=== PATIENT | male | born 1975 | race Caucasian/White ===

== ENCOUNTER 2016-09-24 21:56 | Emergency (ER) | payer SELFPAY ==
[~2016-09-24] VITALS: Ht 195.6 cm; Wt 110.0 kg
[2016-09-24 21:59] VITALS: BP 114/83
[2016-09-26] MEDS ORDERED: RIVA20TA PO (14:57)
[2016-09-26] MEDS ORDERED: OMEP20TA62 PO (14:57)
[2016-09-26] MEDS ORDERED: SERT50TA PO (14:57)
[2016-09-26] MEDS ORDERED: DIVA-68 PO ×2 (14:57)
[2016-09-26] MEDS ORDERED: DOCU-30 PO (14:57)
[2016-09-26] MEDS ORDERED: IBUP-1222 PO (14:57)
[2016-09-26] MEDS ORDERED: ZOLP-413 PO (14:57)
[2016-09-26] MEDS ORDERED: DIVA250T6 PO (14:57)
[2016-09-26] MEDS ORDERED: IPRA3AMP INH (14:57)
[2016-09-26] MEDS ORDERED: FURO20TA3 PO (14:57)
[2016-09-26] MEDS ORDERED: HYDR-3240 PO (14:57)
[2016-09-26] MEDS ORDERED: BACL20TA PO (14:57)
== END 2016-09-25 00:37 | disposition home or self-care (01) ==
LOC: ED 23:59 → MERGE 23:59 → ED 09-25 00:37
DX: Z00.01 Encounter for general adult medical examination with abnormal findings (principal); S06.9X0A Unspecified intracranial injury without loss of consciousness, initial encounter; X58.XXXA Exposure to other specified factors, initial encounter; Y93.89 Activity, other specified; Y92.89 Other specified places as the place of occurrence of the external cause; Y99.8 Other external cause status
CPT/HCPCS: 51702

== ENCOUNTER 2016-09-26 13:05 | Inpatient (IN) | payer MEDICAID, OTHER ==
[~2016-09-26] VITALS: Ht 195.6 cm; Wt 118.7 kg
[2016-09-26] MEDS ORDERED: MORPHINE SULFATE 4 MG/ML, 1ML IVPush PRN (13:30)
[2016-09-26] MEDS ORDERED: SODIUM CHLORIDE FLUSH 10ML SYR IVF ONE (13:30)
[2016-09-26] MEDS ORDERED: MORPHINE SULFATE 4 MG/ML, 1ML ONE (13:52)
[2016-09-26 13:54] LABS: HEMATOCRIT 48.6 % (39.2-51.8); HEMOGLOBIN 15.9 g/dL (13.7-18.0); WHITE BLOOD COUNT 10.7 x10^3/uL (3.4-10)
[2016-09-26 14:07] LABS: BLOOD UREA NITROGEN 11 mg/dL (7-18)
[2016-09-26] MEDS ORDERED: PLEASE ENTER ALLERGIES MC SCH ×2 (14:30)
[2016-09-26] MEDS ORDERED: OMEP20TA62 PO (14:57)
[2016-09-26] MEDS ORDERED: SERT50TA PO (14:57)
[2016-09-26] MEDS ORDERED: HYDR-3240 PO (14:57)
[2016-09-26] MEDS ORDERED: FURO20TA3 PO (14:57)
[2016-09-26] MEDS ORDERED: DIVA250T6 PO (14:57)
[2016-09-26] MEDS ORDERED: RIVA20TA PO (14:57)
[2016-09-26] MEDS ORDERED: BACL20TA PO (14:57)
[2016-09-26] MEDS ORDERED: DOCU-131 PO (14:57)
[2016-09-26] MEDS ORDERED: DIVA-68 PO ×2 (14:57)
[2016-09-26] MEDS ORDERED: IBUP-1222 PO (14:57)
[2016-09-26] MEDS ORDERED: ZOLP-413 PO (14:57)
[2016-09-26] MEDS ORDERED: IPRA3AMP INH (14:57)
[2016-09-26] MEDS ORDERED: CEFTRIAXONE PMX 1GM/50ML 50 ML IV ONE (17:00)
[2016-09-26] MEDS ORDERED: CEFTRIAXONE PMX 1GM/50ML 50 ML ONE (17:01)
[2016-09-26 17:52] VITALS: BP 113/75
[2016-09-26] MEDS ORDERED: ENOXAPARIN 40 MG/0.4 ML SQ SCH (18:30)
[2016-09-26] MEDS ORDERED: ACETAMINOPHEN 325 MG TABLET PO PRN (18:30)
[2016-09-26] MEDS ORDERED: ENALAPRILAT 1.25 MG/ML, 2ML IVPush PRN (18:30)
[2016-09-26] MEDS ORDERED: ONDANSETRON ODT 4 MG PO PRN (18:30)
[2016-09-26] MEDS ORDERED: IBUPROFEN 600 MG TABLET PO PRN (19:00)
[2016-09-26 19:11] VITALS: BP 108/74
[2016-09-26] MEDS: DIVALPROEX 500 MG TABLET.DR PO SCH (20:41)
[2016-09-26] MEDS: ZOLPIDEM 5MG TABLET PO SCH (20:41)
[2016-09-26] MEDS: BACLOFEN 10 MG TABLET PO SCH (20:41)
[2016-09-26] MEDS ORDERED: ALBUTEROL/IPRATROPIUM 2.5MG/0.5MG, 3 ML NPPB PRN (21:30)
[2016-09-26] MEDS: ALBUTEROL/IPRATROPIUM 2.5MG/0.5MG, 3 ML NEB SCH (21:34)
[2016-09-27 01:07] VITALS: BP 107/69
[2016-09-27] MEDS: CEFTRIAXONE PMX 2GM/50ML 50 ML IV SCH ×2 (04:19→16:38)
[2016-09-27] MEDS: ALBUTEROL/IPRATROPIUM 2.5MG/0.5MG, 3 ML NPPB SCH ×3 (06:48→15:00)
[2016-09-27] MEDS: ALBUTEROL/IPRATROPIUM 2.5MG/0.5MG, 3 ML NEB SCH ×3 (06:48→16:00)
[2016-09-27 08:00] VITALS: BP 107/73
[2016-09-27] MEDS: DOCUSATE 100 MG CAPSULE PO SCH (08:22)
[2016-09-27] MEDS: BACLOFEN 10 MG TABLET PO SCH ×3 (08:22→19:49)
[2016-09-27] MEDS: DIVALPROEX 500 MG TABLET.DR PO SCH ×2 (08:22→19:49)
[2016-09-27] MEDS: SERTRALINE 50MG TABLET PO SCH (08:22)
[2016-09-27] MEDS: RIVAROXABAN 20 MG TABLET PO SCH (08:22)
[2016-09-27] MEDS: FUROSEMIDE 20 MG TABLET PO SCH (08:22)
[2016-09-27] MEDS: OMEPRAZOLE 20 MG CAPSULE.DR PO SCH (08:22)
[2016-09-27] MEDS: DIVALPROEX 250 MG TABLET.DR PO SCH (12:10)
[2016-09-27 14:00] VITALS: BP 151/83
[2016-09-27 19:46] VITALS: BP 117/70
[2016-09-27] MEDS: ZOLPIDEM 5MG TABLET PO SCH (19:49)
[2016-09-28 01:09] VITALS: BP 109/71
[2016-09-28] MEDS: CEFTRIAXONE PMX 2GM/50ML 50 ML IV SCH ×2 (04:10→18:00)
[2016-09-28] MEDS: ALBUTEROL/IPRATROPIUM 2.5MG/0.5MG, 3 ML NPPB SCH ×2 (08:38→11:00)
[2016-09-28] MEDS: DOCUSATE 100 MG CAPSULE PO SCH (09:00)
[2016-09-28 10:21] VITALS: BP 138/81
[2016-09-28] MEDS: DIVALPROEX 500 MG TABLET.DR PO SCH ×2 (10:25→20:11)
[2016-09-28] MEDS: BACLOFEN 10 MG TABLET PO SCH ×3 (10:25→20:11)
[2016-09-28] MEDS: FUROSEMIDE 20 MG TABLET PO SCH (10:25)
[2016-09-28] MEDS: OMEPRAZOLE 20 MG CAPSULE.DR PO SCH (10:25)
[2016-09-28] MEDS: RIVAROXABAN 20 MG TABLET PO SCH (10:26)
[2016-09-28] MEDS: SERTRALINE 50MG TABLET PO SCH (10:26)
[2016-09-28] MEDS: DIVALPROEX 250 MG TABLET.DR PO SCH (14:24)
[2016-09-28 14:47] VITALS: BP 99/61
[2016-09-28] MEDS ORDERED: ALBUTEROL/IPRATROPIUM 2.5MG/0.5MG, 3 ML NPPB PRN (16:30)
[2016-09-28 19:16] VITALS: BP 104/58
[2016-09-28] MEDS: ZOLPIDEM 5MG TABLET PO SCH (20:11)
[2016-09-28] MEDS: HYDROcodone/APAP 5/325 TABLET PO PRN (23:07)
[2016-09-29 01:23] VITALS: BP 108/72
[2016-09-29] MEDS: CEFTRIAXONE PMX 2GM/50ML 50 ML IV SCH (05:08)
[2016-09-29 08:11] VITALS: BP 106/69
[2016-09-29] MEDS: DOCUSATE 100 MG CAPSULE PO SCH (09:00)
[2016-09-29] MEDS: OMEPRAZOLE 20 MG CAPSULE.DR PO SCH (09:45)
[2016-09-29] MEDS: RIVAROXABAN 20 MG TABLET PO SCH (09:45)
[2016-09-29] MEDS: FUROSEMIDE 20 MG TABLET PO SCH (09:45)
[2016-09-29] MEDS: BACLOFEN 10 MG TABLET PO SCH ×3 (09:46→21:42)
[2016-09-29] MEDS: DIVALPROEX 500 MG TABLET.DR PO SCH ×2 (09:46→21:42)
[2016-09-29] MEDS: SERTRALINE 50MG TABLET PO SCH (09:47)
[2016-09-29] MEDS: DIVALPROEX 250 MG TABLET.DR PO SCH (12:38)
[2016-09-29 14:48] VITALS: BP 139/73
[2016-09-29 19:09] VITALS: BP 119/77
[2016-09-29] MEDS: HYDROcodone/APAP 5/325 TABLET PO PRN (21:42)
[2016-09-29] MEDS: ZOLPIDEM 5MG TABLET PO SCH (21:42)
[2016-09-29] MEDS: NICOTINE 21 MG/24 HR PATCH.TD24 TD SCH (21:43)
[2016-09-30 00:41] VITALS: BP 110/66
[2016-09-30] MEDS: HYDROcodone/APAP 5/325 TABLET PO PRN (05:14)
[2016-09-30] MEDS: RIVAROXABAN 20 MG TABLET PO SCH (08:24)
[2016-09-30] MEDS: OMEPRAZOLE 20 MG CAPSULE.DR PO SCH (08:24)
[2016-09-30] MEDS: SERTRALINE 50MG TABLET PO SCH (08:24)
[2016-09-30] MEDS: FUROSEMIDE 20 MG TABLET PO SCH ×3 (08:25→08:28)
[2016-09-30] MEDS: BACLOFEN 10 MG TABLET PO SCH ×3 (08:25→21:26)
[2016-09-30] MEDS: DIVALPROEX 500 MG TABLET.DR PO SCH ×2 (08:25→21:26)
[2016-09-30] MEDS: DOCUSATE 100 MG CAPSULE PO SCH (08:25)
[2016-09-30 08:39] VITALS: BP 132/83
[2016-09-30] MEDS ORDERED: ALBUTEROL/IPRATROPIUM 2.5MG/0.5MG, 3 ML NPPB PRN (09:00)
[2016-09-30] MEDS ORDERED: NICOTINE 21 MG/24 HR PATCH.TD24 TD SCH (09:00)
[2016-09-30] MEDS: DIVALPROEX 250 MG TABLET.DR PO SCH (13:52)
[2016-09-30 16:02] VITALS: BP 116/81
[2016-09-30 18:48] VITALS: BP 120/77
[2016-09-30] MEDS: NICOTINE 21 MG/24 HR PATCH.TD24 TD SCH (21:26)
[2016-09-30] MEDS: ZOLPIDEM 5MG TABLET PO SCH (21:26)
[2016-10-01 01:00] VITALS: BP 112/66
[2016-10-01] MEDS: HYDROcodone/APAP 5/325 TABLET PO PRN (04:00)
[2016-10-01 05:45] LABS: HEMATOCRIT 43.2 % (39.2-51.8); HEMOGLOBIN 14.4 g/dL (13.7-18.0); WHITE BLOOD COUNT 6.9 x10^3/uL (3.4-10)
[2016-10-01 05:45] LABS: BLOOD UREA NITROGEN 11 mg/dL (7-18)
[2016-10-01 07:08] VITALS: BP 96/58
[2016-10-01] MEDS: DIVALPROEX 500 MG TABLET.DR PO SCH ×2 (08:47→20:34)
[2016-10-01] MEDS: SERTRALINE 50MG TABLET PO SCH (08:48)
[2016-10-01] MEDS: FUROSEMIDE 20 MG TABLET PO SCH (08:48)
[2016-10-01] MEDS: OMEPRAZOLE 20 MG CAPSULE.DR PO SCH (08:48)
[2016-10-01] MEDS: DOCUSATE 100 MG CAPSULE PO SCH (08:48)
[2016-10-01] MEDS: BACLOFEN 10 MG TABLET PO SCH ×3 (08:48→20:33)
[2016-10-01] MEDS: RIVAROXABAN 20 MG TABLET PO SCH (08:48)
[2016-10-01] MEDS: DIVALPROEX 250 MG TABLET.DR PO SCH (12:03)
[2016-10-01 13:01] VITALS: BP 118/81
[2016-10-01 18:49] VITALS: BP 123/84
[2016-10-01] MEDS: ZOLPIDEM 5MG TABLET PO SCH (20:33)
[2016-10-01] MEDS: NICOTINE 21 MG/24 HR PATCH.TD24 TD SCH (20:33)
[2016-10-02 00:14] VITALS: BP 106/73
[2016-10-02 08:10] VITALS: BP 90/55
[2016-10-02] MEDS: DOCUSATE 100 MG CAPSULE PO SCH (08:33)
[2016-10-02] MEDS: OMEPRAZOLE 20 MG CAPSULE.DR PO SCH (08:33)
[2016-10-02] MEDS: RIVAROXABAN 20 MG TABLET PO SCH (08:33)
[2016-10-02] MEDS: BACLOFEN 10 MG TABLET PO SCH ×3 (08:33→19:35)
[2016-10-02] MEDS: SERTRALINE 50MG TABLET PO SCH (08:33)
[2016-10-02] MEDS: FUROSEMIDE 20 MG TABLET PO SCH (08:33)
[2016-10-02] MEDS: DIVALPROEX 500 MG TABLET.DR PO SCH ×2 (08:33→19:35)
[2016-10-02] MEDS: DIVALPROEX 250 MG TABLET.DR PO SCH (12:00)
[2016-10-02 14:00] VITALS: BP 122/89
[2016-10-02 19:18] VITALS: BP 108/74
[2016-10-02] MEDS: ZOLPIDEM 5MG TABLET PO SCH (19:35)
[2016-10-02] MEDS: NICOTINE 21 MG/24 HR PATCH.TD24 TD SCH (19:35)
[2016-10-02] MEDS ORDERED: ONDANSETRON ODT 4 MG PO PRN (20:00)
[2016-10-02] MEDS ORDERED: ACETAMINOPHEN 325 MG TABLET PO PRN (20:00)
[2016-10-02] MEDS ORDERED: IBUPROFEN 600 MG TABLET PO PRN (20:00)
[2016-10-03 02:10] VITALS: BP 124/68
[2016-10-03 07:57] VITALS: BP 104/69
[2016-10-03] MEDS: FUROSEMIDE 20 MG TABLET PO SCH (09:00)
[2016-10-03] MEDS: DOCUSATE 100 MG CAPSULE PO SCH (09:16)
[2016-10-03] MEDS: SERTRALINE 50MG TABLET PO SCH (09:17)
[2016-10-03] MEDS: BACLOFEN 10 MG TABLET PO SCH ×3 (09:17→19:21)
[2016-10-03] MEDS: OMEPRAZOLE 20 MG CAPSULE.DR PO SCH (09:17)
[2016-10-03] MEDS: DIVALPROEX 500 MG TABLET.DR PO SCH ×2 (09:17→19:21)
[2016-10-03] MEDS: RIVAROXABAN 20 MG TABLET PO SCH (09:17)
[2016-10-03 12:15] VITALS: BP 103/60
[2016-10-03] MEDS: DIVALPROEX 250 MG TABLET.DR PO SCH (13:16)
[2016-10-03 19:17] VITALS: BP 109/71
[2016-10-03] MEDS: ZOLPIDEM 5MG TABLET PO SCH (19:21)
[2016-10-03] MEDS: NICOTINE 21 MG/24 HR PATCH.TD24 TD SCH (19:21)
[2016-10-04 02:15] VITALS: BP 112/76
[2016-10-04 07:27] VITALS: BP 110/78
[2016-10-04] MEDS: DOCUSATE 100 MG CAPSULE PO SCH (09:00)
[2016-10-04] MEDS: OMEPRAZOLE 20 MG CAPSULE.DR PO SCH (09:52)
[2016-10-04] MEDS: RIVAROXABAN 20 MG TABLET PO SCH (09:52)
[2016-10-04] MEDS: SERTRALINE 50MG TABLET PO SCH (09:52)
[2016-10-04] MEDS: FUROSEMIDE 20 MG TABLET PO SCH (09:52)
[2016-10-04] MEDS: BACLOFEN 10 MG TABLET PO SCH ×3 (09:52→20:58)
[2016-10-04] MEDS: DIVALPROEX 500 MG TABLET.DR PO SCH ×2 (09:52→20:58)
[2016-10-04] MEDS: DIVALPROEX 250 MG TABLET.DR PO SCH (12:56)
[2016-10-04 13:59] VITALS: BP 113/73
[2016-10-04 19:57] VITALS: BP 129/86
[2016-10-04] MEDS: ZOLPIDEM 5MG TABLET PO SCH (20:58)
[2016-10-04] MEDS: NICOTINE 21 MG/24 HR PATCH.TD24 TD SCH (20:59)
[2016-10-04] MEDS: HYDROcodone/APAP 5/325 TABLET PO PRN (21:01)
[2016-10-05 07:35] VITALS: BP 90/61
[2016-10-05] MEDS: DOCUSATE 100 MG CAPSULE PO SCH (09:00)
[2016-10-05] MEDS: FUROSEMIDE 20 MG TABLET PO SCH (09:00)
[2016-10-05] MEDS: DIVALPROEX 500 MG TABLET.DR PO SCH ×2 (10:31→21:28)
[2016-10-05] MEDS: OMEPRAZOLE 20 MG CAPSULE.DR PO SCH (10:32)
[2016-10-05] MEDS: SERTRALINE 50MG TABLET PO SCH (10:32)
[2016-10-05] MEDS: BACLOFEN 10 MG TABLET PO SCH ×3 (10:32→21:28)
[2016-10-05] MEDS: RIVAROXABAN 20 MG TABLET PO SCH (10:32)
[2016-10-05] MEDS: DIVALPROEX 250 MG TABLET.DR PO SCH (14:21)
[2016-10-05 14:34] VITALS: BP 97/65
[2016-10-05 19:32] VITALS: BP 100/66
[2016-10-05] MEDS: ZOLPIDEM 5MG TABLET PO SCH (21:28)
[2016-10-05] MEDS: NICOTINE 21 MG/24 HR PATCH.TD24 TD SCH (21:28)
[2016-10-06 00:46] VITALS: BP 114/68
[2016-10-06 07:46] VITALS: BP 103/65
[2016-10-06] MEDS: DIVALPROEX 500 MG TABLET.DR PO SCH ×2 (08:43→20:10)
[2016-10-06] MEDS: FUROSEMIDE 20 MG TABLET PO SCH (08:43)
[2016-10-06] MEDS: OMEPRAZOLE 20 MG CAPSULE.DR PO SCH (08:43)
[2016-10-06] MEDS: RIVAROXABAN 20 MG TABLET PO SCH (08:43)
[2016-10-06] MEDS: BACLOFEN 10 MG TABLET PO SCH ×3 (08:43→20:10)
[2016-10-06] MEDS: SERTRALINE 50MG TABLET PO SCH (08:44)
[2016-10-06] MEDS: DOCUSATE 100 MG CAPSULE PO SCH (08:45)
[2016-10-06] MEDS: DIVALPROEX 250 MG TABLET.DR PO SCH (11:53)
[2016-10-06 12:36] VITALS: BP 101/61
[2016-10-06 19:02] VITALS: BP 113/71
[2016-10-06] MEDS: ZOLPIDEM 5MG TABLET PO SCH (20:10)
[2016-10-06] MEDS: NICOTINE 21 MG/24 HR PATCH.TD24 TD SCH (20:11)
[2016-10-07 02:21] VITALS: BP 107/69
[2016-10-07 05:46] LABS: HEMATOCRIT 46.9 % (39.2-51.8); HEMOGLOBIN 15.4 g/dL (13.7-18.0); WHITE BLOOD COUNT 9.5 x10^3/uL (3.4-10)
[2016-10-07 05:53] LABS: BLOOD UREA NITROGEN 11 mg/dL (7-18)
[2016-10-07 07:15] VITALS: BP 109/74
[2016-10-07] MEDS: OMEPRAZOLE 20 MG CAPSULE.DR PO SCH (07:54)
[2016-10-07] MEDS: RIVAROXABAN 20 MG TABLET PO SCH (07:54)
[2016-10-07] MEDS: DOCUSATE 100 MG CAPSULE PO SCH (07:54)
[2016-10-07] MEDS: BACLOFEN 10 MG TABLET PO SCH ×3 (07:54→20:23)
[2016-10-07] MEDS: SERTRALINE 50MG TABLET PO SCH (07:54)
[2016-10-07] MEDS: DIVALPROEX 500 MG TABLET.DR PO SCH ×2 (07:54→20:24)
[2016-10-07] MEDS: FUROSEMIDE 20 MG TABLET PO SCH (07:54)
[2016-10-07] MEDS: DIVALPROEX 250 MG TABLET.DR PO SCH (11:57)
[2016-10-07 15:12] VITALS: BP 101/58
[2016-10-07 19:14] VITALS: BP 102/69
[2016-10-07] MEDS: ZOLPIDEM 5MG TABLET PO SCH (20:24)
[2016-10-07] MEDS: NICOTINE 21 MG/24 HR PATCH.TD24 TD SCH (21:26)
[2016-10-08 01:12] VITALS: BP 103/63
[2016-10-08 07:36] VITALS: BP 98/73
[2016-10-08] MEDS: DIVALPROEX 500 MG TABLET.DR PO SCH ×2 (07:50→20:26)
[2016-10-08] MEDS: DOCUSATE 100 MG CAPSULE PO SCH (07:50)
[2016-10-08] MEDS: OMEPRAZOLE 20 MG CAPSULE.DR PO SCH (07:51)
[2016-10-08] MEDS: SERTRALINE 50MG TABLET PO SCH (07:51)
[2016-10-08] MEDS: BACLOFEN 10 MG TABLET PO SCH ×3 (07:51→20:26)
[2016-10-08] MEDS: RIVAROXABAN 20 MG TABLET PO SCH (07:51)
[2016-10-08] MEDS: FUROSEMIDE 20 MG TABLET PO SCH (07:51)
[2016-10-08] MEDS: DIVALPROEX 250 MG TABLET.DR PO SCH (11:15)
[2016-10-08 12:07] VITALS: BP 115/75
[2016-10-08] MEDS: HYDROcodone/APAP 5/325 TABLET PO PRN (15:40)
[2016-10-08 19:05] VITALS: BP 109/69
[2016-10-08] MEDS: NICOTINE 21 MG/24 HR PATCH.TD24 TD SCH (20:26)
[2016-10-08] MEDS: ZOLPIDEM 5MG TABLET PO SCH (20:26)
[2016-10-09 00:18] VITALS: BP 96/68
[2016-10-09 07:26] VITALS: BP 93/56
[2016-10-09] MEDS: BACLOFEN 10 MG TABLET PO SCH ×3 (08:41→21:04)
[2016-10-09] MEDS: RIVAROXABAN 20 MG TABLET PO SCH (08:41)
[2016-10-09] MEDS: FUROSEMIDE 20 MG TABLET PO SCH (08:41)
[2016-10-09] MEDS: OMEPRAZOLE 20 MG CAPSULE.DR PO SCH (08:41)
[2016-10-09] MEDS: DIVALPROEX 500 MG TABLET.DR PO SCH ×2 (08:41→21:04)
[2016-10-09] MEDS: SERTRALINE 50MG TABLET PO SCH (08:41)
[2016-10-09] MEDS: DOCUSATE 100 MG CAPSULE PO SCH (08:41)
[2016-10-09] MEDS: DIVALPROEX 250 MG TABLET.DR PO SCH (13:07)
[2016-10-09 14:36] VITALS: BP 92/62
[2016-10-09 19:52] VITALS: BP 99/62
[2016-10-09] MEDS: ZOLPIDEM 5MG TABLET PO SCH (21:03)
[2016-10-09] MEDS: NICOTINE 21 MG/24 HR PATCH.TD24 TD SCH (21:05)
[2016-10-10 01:03] VITALS: BP 100/70
[2016-10-10 06:54] VITALS: BP 110/75
[2016-10-10] MEDS ORDERED: NITROGLYCERIN SINGLE TAB 0.4 MG SL ONE (08:00)
[2016-10-10] MEDS ORDERED: ASPIRIN 325 MG TABLET EC ONE (08:00)
[2016-10-10] MEDS: DOCUSATE 100 MG CAPSULE PO SCH (10:10)
[2016-10-10] MEDS: BACLOFEN 10 MG TABLET PO SCH ×3 (10:11→19:54)
[2016-10-10] MEDS: FUROSEMIDE 20 MG TABLET PO SCH (10:11)
[2016-10-10] MEDS: OMEPRAZOLE 20 MG CAPSULE.DR PO SCH (10:11)
[2016-10-10] MEDS: DIVALPROEX 500 MG TABLET.DR PO SCH ×2 (10:11→19:54)
[2016-10-10] MEDS: SERTRALINE 50MG TABLET PO SCH (10:11)
[2016-10-10] MEDS: RIVAROXABAN 20 MG TABLET PO SCH (10:11)
[2016-10-10] MEDS: HYDROcodone/APAP 5/325 TABLET PO PRN (10:28)
[2016-10-10] MEDS: DIVALPROEX 250 MG TABLET.DR PO SCH (12:08)
[2016-10-10 13:31] VITALS: BP 108/69
[2016-10-10 18:50] VITALS: BP 115/78
[2016-10-10] MEDS: ZOLPIDEM 5MG TABLET PO SCH (19:54)
[2016-10-10] MEDS: NICOTINE 21 MG/24 HR PATCH.TD24 TD SCH (19:54)
[2016-10-10] MEDS: NITROGLYCERIN 0.4 MG BOTTLE (25 TABS) SL PRN ×3 (22:23→22:34)
[2016-10-10] MEDS ORDERED: ASPIRIN 325 MG TABLET PO ONE (22:30)
[2016-10-10 22:44] LABS: IS PT STATUS REG ER OR PRE ER? NO
[2016-10-10] MEDS ORDERED: MORPHINE SULFATE 4 MG/ML, 1ML IVPush ONE (23:00)
[2016-10-11 00:32] VITALS: BP 102/62
[2016-10-11 07:12] VITALS: BP 111/74
[2016-10-11] MEDS: DOCUSATE 100 MG CAPSULE PO SCH (09:00)
[2016-10-11] MEDS: SERTRALINE 50MG TABLET PO SCH (10:01)
[2016-10-11] MEDS: RIVAROXABAN 20 MG TABLET PO SCH (10:02)
[2016-10-11] MEDS: FUROSEMIDE 20 MG TABLET PO SCH (10:02)
[2016-10-11] MEDS: DIVALPROEX 500 MG TABLET.DR PO SCH ×2 (10:02→19:39)
[2016-10-11] MEDS: OMEPRAZOLE 20 MG CAPSULE.DR PO SCH (10:02)
[2016-10-11] MEDS: BACLOFEN 10 MG TABLET PO SCH ×3 (10:02→19:39)
[2016-10-11] MEDS: DIVALPROEX 250 MG TABLET.DR PO SCH (12:13)
[2016-10-11 13:53] VITALS: BP 119/73
[2016-10-11] MEDS: ZOLPIDEM 5MG TABLET PO SCH (19:39)
[2016-10-11] MEDS: NICOTINE 21 MG/24 HR PATCH.TD24 TD SCH (19:39)
[2016-10-11 19:44] VITALS: BP 105/71
[2016-10-11 23:48] LABS: IS PT STATUS REG ER OR PRE ER? NO
[2016-10-12 01:17] VITALS: BP 104/57
[2016-10-12 08:00] VITALS: BP 98/68
[2016-10-12] MEDS ORDERED: BISACODYL 10 MG SUPP PR PRN (09:30)
[2016-10-12] MEDS: RIVAROXABAN 20 MG TABLET PO SCH (09:31)
[2016-10-12] MEDS: SERTRALINE 50MG TABLET PO SCH (09:31)
[2016-10-12] MEDS: POLYETHYLENE GLYCOL 17 GM PACKET PO SCH (09:31)
[2016-10-12] MEDS: BACLOFEN 10 MG TABLET PO SCH ×3 (09:32→19:25)
[2016-10-12] MEDS: DOCUSATE 100 MG CAPSULE PO SCH (09:32)
[2016-10-12] MEDS: DIVALPROEX 500 MG TABLET.DR PO SCH ×2 (09:32→19:26)
[2016-10-12] MEDS: FUROSEMIDE 20 MG TABLET PO SCH (09:32)
[2016-10-12] MEDS: OMEPRAZOLE 20 MG CAPSULE.DR PO SCH (09:32)
[2016-10-12] MEDS: DIVALPROEX 250 MG TABLET.DR PO SCH (12:02)
[2016-10-12 13:57] VITALS: BP 91/63
[2016-10-12] MEDS: ZOLPIDEM 5MG TABLET PO SCH (19:25)
[2016-10-12] MEDS: NICOTINE 21 MG/24 HR PATCH.TD24 TD SCH (19:26)
[2016-10-12 19:44] VITALS: BP 120/72
[2016-10-13 01:02] VITALS: BP 113/67
[2016-10-13] MEDS: HYDROcodone/APAP 5/325 TABLET PO PRN ×2 (03:15→23:49)
[2016-10-13 08:49] VITALS: BP 101/65
[2016-10-13] MEDS: DIVALPROEX 500 MG TABLET.DR PO SCH ×2 (09:00→20:09)
[2016-10-13] MEDS: DIVALPROEX 250 MG TABLET.DR PO SCH (12:09)
[2016-10-13] MEDS: OMEPRAZOLE 20 MG CAPSULE.DR PO SCH (12:10)
[2016-10-13] MEDS: BACLOFEN 10 MG TABLET PO SCH ×3 (12:10→20:09)
[2016-10-13] MEDS: SERTRALINE 50MG TABLET PO SCH (12:10)
[2016-10-13] MEDS: FUROSEMIDE 20 MG TABLET PO SCH (12:10)
[2016-10-13] MEDS: RIVAROXABAN 20 MG TABLET PO SCH (12:10)
[2016-10-13] MEDS: DOCUSATE 100 MG CAPSULE PO SCH (12:10)
[2016-10-13] MEDS: POLYETHYLENE GLYCOL 17 GM PACKET PO SCH (12:11)
[2016-10-13 14:50] VITALS: BP 96/61
[2016-10-13 19:57] VITALS: BP 108/67
[2016-10-13] MEDS: ZOLPIDEM 5MG TABLET PO SCH (20:09)
[2016-10-13] MEDS: NICOTINE 21 MG/24 HR PATCH.TD24 TD SCH (20:10)
[2016-10-14 02:18] VITALS: BP 108/59
[2016-10-14 08:00] VITALS: BP 101/64
[2016-10-14] MEDS: DOCUSATE 100 MG CAPSULE PO SCH (09:00)
[2016-10-14] MEDS: POLYETHYLENE GLYCOL 17 GM PACKET PO SCH (09:00)
[2016-10-14] MEDS: OMEPRAZOLE 20 MG CAPSULE.DR PO SCH (09:17)
[2016-10-14] MEDS: BACLOFEN 10 MG TABLET PO SCH (09:17)
[2016-10-14] MEDS: SERTRALINE 50MG TABLET PO SCH (09:17)
[2016-10-14] MEDS: RIVAROXABAN 20 MG TABLET PO SCH (09:17)
[2016-10-14] MEDS: FUROSEMIDE 20 MG TABLET PO SCH (09:18)
[2016-10-14] MEDS: DIVALPROEX 500 MG TABLET.DR PO SCH (09:18)
[2016-10-14 14:00] VITALS: BP 117/73
[2016-10-14] MEDS: DIVALPROEX 250 MG TABLET.DR PO SCH (14:14)
[2016-10-14] MEDS ORDERED: NICO1PAT16 TD (15:32)
[2016-10-14] MEDS ORDERED: POLY17PO5 PO (15:32)
== END 2016-10-14 18:35 | DRG 602 ==
LOC: ED 16:40 → EDIP 16:41 → ED 16:51 → 3NE 17:30
PROVIDERS: ADMIT Family Medicine; ATTEND Hospitalist
DX: L03.115 Cellulitis of right lower limb (principal); E43 Unspecified severe protein-calorie malnutrition; J96.11 Chronic respiratory failure with hypoxia; D68.69 Other thrombophilia; I48.2 Chronic atrial fibrillation; R53.2 Functional quadriplegia; F33.9 Major depressive disorder, recurrent, unspecified; M86.60 Other chronic osteomyelitis, unspecified site; G40.909 Epilepsy, unspecified, not intractable, without status epilepticus; I10 Essential (primary) hypertension; F25.9 Schizoaffective disorder, unspecified; F17.200 Nicotine dependence, unspecified, uncomplicated; I20.9 Angina pectoris, unspecified; K59.00 Constipation, unspecified; M50.30 Other cervical disc degeneration, unspecified cervical region; Z71.6 Tobacco abuse counseling; Z79.01 Long term (current) use of anticoagulants; Z87.820 Personal history of traumatic brain injury; Z89.512 Acquired absence of left leg below knee; Z68.31 Body mass index [BMI] 31.0-31.9, adult; Z88.0 Allergy status to penicillin
CPT/HCPCS: 36415; 70450; 72125; 80048; 82040; 84484; 85025; 93005; 94640; 99285; J0696; J7620

== ENCOUNTER 2017-09-13 12:24 | Inpatient (IN) | payer MEDICAID, OTHER ==
[~2017-09-13] VITALS: Ht 198.1 cm; Wt 121.7 kg
[~2017-09-13 12:24] MED LIST: BACL20TA PO; DIVA-59 PO; DIVA-61 PO; DOCU-131 PO; FURO20TA3 PO; HYDR-3240 PO; IBUP-1222 PO; IPRA3AMP30 INH; NICO-487 TD; OMEP20TA62 PO; POLY17PO5 PO; RIVA20TA PO; SERT50TA PO; ZOLP-413 PO
[2017-09-13 13:10] LABS: BASOPHILS # (AUTO) 0.03 x10^3/uL (0-0.1); BASOPHILS % (AUTO) 0 % (0-1); EOSINOPHILS # (AUTO) 0.12 x10^3/uL (0-0.4); EOSINOPHILS % (AUTO) 1 % (1-7); LYMPHOCYTES # (AUTO) 1.31 x10^3/uL (1-3.4); LYMPHOCYTES % (AUTO) 15 % (22-44); MD NO; MEAN CORPUSCULAR HEMOGLOBIN 31.5 pg (27.5-34.5); MEAN CORPUSCULAR HGB CONC 33.9 g/dL (33.2-36.2); MONOCYTES # (AUTO) 0.71 x10^3/uL (0.2-0.8); MONOCYTES % (AUTO) 8 % (2-9); NEUTROPHILS # (AUTO) 6.72 x10^3/uL (1.8-6.8); NEUTROPHILS % (AUTO) 76 % (42-75); PLATELET COUNT 262 x10^3/uL (130-400); RED BLOOD COUNT 5.36 x10^6/uL (4.38-5.82); RED CELL DISTRIBUTION WIDTH 15.4 % (9.4-14.8)
[2017-09-13 13:22] LABS: ALANINE AMINOTRANSFERASE 21 U/L (12-78); ALBUMIN 3.3 g/dL (3.4-5.0); ANION GAP 6 mmol/L (5-15); CALCIUM 8.6 mg/dL (8.5-10.1); CHLORIDE 108 mmol/L (98-107); CREATININE 0.87 mg/dL (0.7-1.3); SALICYLATE LEVEL 2.3 mg/dL (2.8-20.0)
[2017-09-13 13:24] LABS: ALKALINE PHOSPHATASE 71 U/L (45-117); BILIRUBIN,TOTAL 0.4 mg/dL (0.2-1.0); TOTAL PROTEIN 7.1 g/dL (6.4-8.2)
[2017-09-13 13:25] LABS: ACETAMINOPHEN < 2 mcg/mL (10-30)
[2017-09-13] MEDS ORDERED: MELA3TAB2 PO (13:25)
[2017-09-13 13:40] LABS: AMPHETAMINE SCREEN, URINE Negative (Negative); BARBITURATE SCREEN, URINE Negative (Negative); BENZODIAZEPINE SCREEN, URINE Negative (Negative); CANNABINOID SCREEN, URINE Negative (Negative); COCAINE SCREEN, URINE Negative (Negative); METHADONE SCREEN, URINE Negative (Negative); OPIATE SCREEN, URINE Negative (Negative)
[2017-09-13] MEDS: ENOXAPARIN 40 MG/0.4 ML SQ SCH (17:00)
[2017-09-13] MEDS ORDERED: HALOPERIDOL 5 MG/ML IM PRN (17:00)
[2017-09-13] MEDS ORDERED: ENALAPRILAT 1.25 MG/ML, 2ML IVPush PRN (17:00)
[2017-09-13] MEDS ORDERED: LORazepam 2 MG/ML, 1ML IVPush PRN (17:00)
[2017-09-13] MEDS: DIVALPROEX 250 MG TABLET.DR PO SCH (17:27)
[2017-09-13] MEDS: MELATONIN 3 MG TABLET PO SCH (20:03)
[2017-09-13] MEDS: DIVALPROEX 500 MG TABLET.DR PO SCH (20:04)
[2017-09-13] MEDS: NICOTINE 7 MG/24 HR PATCH.TD24 TD SCH (21:47)
[2017-09-14 02:58] VITALS: BP 99/48
[2017-09-14] MEDS: ACETAMINOPHEN 325 MG TABLET PO PRN (03:11)
[2017-09-14] MEDS: ASPIRIN 81 MG TABLET EC PO SCH (06:22)
[2017-09-14] MEDS: DIVALPROEX 500 MG TABLET.DR PO SCH ×2 (08:44→20:41)
[2017-09-14] MEDS: NICOTINE 7 MG/24 HR PATCH.TD24 TD SCH (08:45)
[2017-09-14 08:56] VITALS: BP 97/68
[2017-09-14] MEDS: DIVALPROEX 250 MG TABLET.DR PO SCH (11:56)
[2017-09-14 13:10] LABS: MICROSCOPIC NOT IND
[2017-09-14 13:18] LABS: CULTURE INDICATED? NO
[2017-09-14 15:04] VITALS: BP 113/77
[2017-09-14] MEDS ORDERED: RIVA20TA PO (15:55)
[2017-09-14] MEDS: ENOXAPARIN 40 MG/0.4 ML SQ SCH (17:00)
[2017-09-14 19:28] VITALS: BP 98/63
[2017-09-14] MEDS: MELATONIN 3 MG TABLET PO SCH (20:41)
[2017-09-15 00:50] VITALS: BP 105/66
[2017-09-15] MEDS: ASPIRIN 81 MG TABLET EC PO SCH (06:01)
[2017-09-15] MEDS: DIVALPROEX 500 MG TABLET.DR PO SCH ×2 (08:23→21:00)
[2017-09-15 08:28] VITALS: BP 112/76
[2017-09-15] MEDS: DIVALPROEX 250 MG TABLET.DR PO SCH (13:17)
[2017-09-15 13:58] VITALS: BP 123/82
[2017-09-15] MEDS: ENOXAPARIN 40 MG/0.4 ML SQ SCH (17:00)
[2017-09-15 18:30] VITALS: BP 104/66
[2017-09-15] MEDS: MELATONIN 3 MG TABLET PO SCH (21:00)
[2017-09-15] MEDS: NICOTINE 7 MG/24 HR PATCH.TD24 TD SCH (21:30)
[2017-09-16 01:41] VITALS: BP 102/67
[2017-09-16] MEDS: ASPIRIN 81 MG TABLET EC PO SCH (06:14)
[2017-09-16] MEDS: NICOTINE 7 MG/24 HR PATCH.TD24 TD SCH (06:17)
[2017-09-16 08:00] VITALS: BP 126/80
[2017-09-16] MEDS: DIVALPROEX 500 MG TABLET.DR PO SCH (09:05)
[2017-09-16] MEDS: DIVALPROEX 250 MG TABLET.DR PO SCH (12:03)
[2017-09-16 13:53] VITALS: BP 114/79
[2017-09-16] MEDS: ENOXAPARIN 40 MG/0.4 ML SQ SCH (16:00)
[2017-09-16 19:30] VITALS: BP 102/74
[2017-09-17] MEDS: DIVALPROEX 500 MG TABLET.DR PO SCH ×3 (00:25→20:28)
[2017-09-17] MEDS: MELATONIN 3 MG TABLET PO SCH ×2 (00:33→20:28)
[2017-09-17 01:27] VITALS: BP 102/68
[2017-09-17] MEDS: ASPIRIN 81 MG TABLET EC PO SCH (06:00)
[2017-09-17 08:00] VITALS: BP 118/72
[2017-09-17] MEDS: NICOTINE 7 MG/24 HR PATCH.TD24 TD SCH (10:30)
[2017-09-17] MEDS: DIVALPROEX 250 MG TABLET.DR PO SCH (12:18)
[2017-09-17 14:00] VITALS: BP 94/56
[2017-09-17] MEDS: ENOXAPARIN 40 MG/0.4 ML SQ SCH (17:00)
[2017-09-17 19:36] VITALS: BP 108/66
[2017-09-18 00:55] VITALS: BP 100/64
[2017-09-18] MEDS: ASPIRIN 81 MG TABLET EC PO SCH (04:57)
[2017-09-18] MEDS: NICOTINE 7 MG/24 HR PATCH.TD24 TD SCH (04:57)
[2017-09-18 07:04] VITALS: BP 106/71
[2017-09-18] MEDS: DIVALPROEX 500 MG TABLET.DR PO SCH ×2 (09:18→20:08)
[2017-09-18] MEDS: DIVALPROEX 250 MG TABLET.DR PO SCH (11:56)
[2017-09-18 12:01] VITALS: BP 106/72
[2017-09-18] MEDS: ENOXAPARIN 40 MG/0.4 ML SQ SCH (16:53)
[2017-09-18] MEDS: MELATONIN 3 MG TABLET PO SCH (20:07)
[2017-09-18 20:33] VITALS: BP 111/76
[2017-09-19 01:46] VITALS: BP 95/62
[2017-09-19] MEDS: NICOTINE 7 MG/24 HR PATCH.TD24 TD SCH (05:35)
[2017-09-19] MEDS: ASPIRIN 81 MG TABLET EC PO SCH (05:35)
[2017-09-19 07:45] VITALS: BP 100/58
[2017-09-19] MEDS: DIVALPROEX 500 MG TABLET.DR PO SCH ×2 (09:14→20:25)
[2017-09-19] MEDS: DIVALPROEX 250 MG TABLET.DR PO SCH (12:04)
[2017-09-19 13:30] VITALS: BP 113/75
[2017-09-19] MEDS: ENOXAPARIN 40 MG/0.4 ML SQ SCH (17:00)
[2017-09-19 19:30] VITALS: BP 113/51
[2017-09-19] MEDS: MELATONIN 3 MG TABLET PO SCH (20:25)
[2017-09-20 02:38] VITALS: BP 105/69
[2017-09-20] MEDS: ASPIRIN 81 MG TABLET EC PO SCH (06:00)
[2017-09-20] MEDS: NICOTINE 7 MG/24 HR PATCH.TD24 TD SCH (06:01)
[2017-09-20 07:45] VITALS: BP 95/57
[2017-09-20] MEDS: DIVALPROEX 500 MG TABLET.DR PO SCH ×2 (10:06→20:19)
[2017-09-20] MEDS: DIVALPROEX 250 MG TABLET.DR PO SCH ×3 (12:00→14:47)
[2017-09-20 15:00] VITALS: BP 101/62
[2017-09-20] MEDS: ENOXAPARIN 40 MG/0.4 ML SQ SCH (17:00)
[2017-09-20 20:16] VITALS: BP 106/55
[2017-09-20] MEDS: MELATONIN 3 MG TABLET PO SCH (20:19)
[2017-09-21 01:03] VITALS: BP 99/56
[2017-09-21] MEDS: ASPIRIN 81 MG TABLET EC PO SCH ×2 (06:31→06:38)
[2017-09-21] MEDS: NICOTINE 7 MG/24 HR PATCH.TD24 TD SCH (06:32)
[2017-09-21 07:12] VITALS: BP 96/67
[2017-09-21] MEDS: DIVALPROEX 500 MG TABLET.DR PO SCH ×2 (09:04→21:44)
[2017-09-21] MEDS: ACETAMINOPHEN 325 MG TABLET PO PRN (09:06)
[2017-09-21] MEDS: DIVALPROEX 250 MG TABLET.DR PO SCH (12:39)
[2017-09-21 13:09] VITALS: BP 123/85
[2017-09-21] MEDS: ENOXAPARIN 40 MG/0.4 ML SQ SCH (17:57)
[2017-09-21 19:52] VITALS: BP 137/65
[2017-09-21] MEDS: MELATONIN 3 MG TABLET PO SCH (21:44)
[2017-09-22 03:36] VITALS: BP 108/60
[2017-09-22] MEDS: NICOTINE 7 MG/24 HR PATCH.TD24 TD SCH (06:17)
[2017-09-22 07:30] VITALS: BP 95/61
[2017-09-22] MEDS: DIVALPROEX 500 MG TABLET.DR PO SCH ×2 (09:38→20:39)
[2017-09-22] MEDS ORDERED: KETOROLAC 30 MG/1 ML IVPush PRN (10:00)
[2017-09-22] MEDS: DIVALPROEX 250 MG TABLET.DR PO SCH (11:26)
[2017-09-22 14:35] VITALS: BP 106/74
[2017-09-22] MEDS: ENOXAPARIN 40 MG/0.4 ML SQ SCH (16:41)
[2017-09-22 20:00] VITALS: BP 105/68
[2017-09-22] MEDS: MELATONIN 3 MG TABLET PO SCH (20:39)
[2017-09-23 02:31] VITALS: BP 110/74
[2017-09-23] MEDS: ASPIRIN 81 MG TABLET EC PO SCH (06:29)
[2017-09-23] MEDS: NICOTINE 7 MG/24 HR PATCH.TD24 TD SCH (06:29)
[2017-09-23] MEDS: DIVALPROEX 500 MG TABLET.DR PO SCH ×2 (08:31→20:55)
[2017-09-23 08:43] VITALS: BP 90/60
[2017-09-23] MEDS: DIVALPROEX 250 MG TABLET.DR PO SCH (12:34)
[2017-09-23 14:51] VITALS: BP 111/78
[2017-09-23] MEDS: ENOXAPARIN 40 MG/0.4 ML SQ SCH (17:00)
[2017-09-23 18:21] VITALS: BP 107/72
[2017-09-23] MEDS: MELATONIN 3 MG TABLET PO SCH (20:55)
[2017-09-24 01:47] VITALS: BP 113/76
[2017-09-24] MEDS: NICOTINE 7 MG/24 HR PATCH.TD24 TD SCH (06:07)
[2017-09-24] MEDS: ASPIRIN 81 MG TABLET EC PO SCH (06:07)
[2017-09-24 07:43] VITALS: BP 110/74
[2017-09-24] MEDS: DIVALPROEX 500 MG TABLET.DR PO SCH ×2 (09:22→21:32)
[2017-09-24] MEDS: DIVALPROEX 250 MG TABLET.DR PO SCH (12:19)
[2017-09-24 13:06] VITALS: BP 117/80
[2017-09-24] MEDS: ENOXAPARIN 40 MG/0.4 ML SQ SCH (17:00)
[2017-09-24 20:35] VITALS: BP 113/75
[2017-09-24] MEDS: MELATONIN 3 MG TABLET PO SCH (21:32)
[2017-09-25 02:00] VITALS: BP 115/71
[2017-09-25] MEDS: ASPIRIN 81 MG TABLET EC PO SCH (06:00)
[2017-09-25 07:15] VITALS: BP 107/71
[2017-09-25] MEDS: DIVALPROEX 500 MG TABLET.DR PO SCH ×2 (08:34→22:06)
[2017-09-25] MEDS: NICOTINE 7 MG/24 HR PATCH.TD24 TD SCH (08:37)
[2017-09-25] MEDS: DIVALPROEX 250 MG TABLET.DR PO SCH (12:05)
[2017-09-25 13:58] VITALS: BP 109/66
[2017-09-25] MEDS: ENOXAPARIN 40 MG/0.4 ML SQ SCH (17:00)
[2017-09-25 20:17] VITALS: BP 106/71
[2017-09-25] MEDS: MELATONIN 3 MG TABLET PO SCH (22:06)
[2017-09-26 02:21] VITALS: BP 112/70
[2017-09-26] MEDS: ASPIRIN 81 MG TABLET EC PO SCH (06:00)
[2017-09-26 07:53] VITALS: BP 91/65
[2017-09-26] MEDS: NICOTINE 7 MG/24 HR PATCH.TD24 TD SCH (08:40)
[2017-09-26] MEDS: DIVALPROEX 500 MG TABLET.DR PO SCH ×2 (08:40→22:04)
[2017-09-26] MEDS: DIVALPROEX 250 MG TABLET.DR PO SCH (12:10)
[2017-09-26 13:33] VITALS: BP 104/82
[2017-09-26] MEDS: ENOXAPARIN 40 MG/0.4 ML SQ SCH (17:00)
[2017-09-26 19:42] VITALS: BP 116/82
[2017-09-26] MEDS: MELATONIN 3 MG TABLET PO SCH (22:04)
[2017-09-27 03:18] VITALS: BP 99/63
[2017-09-27] MEDS: ASPIRIN 81 MG TABLET EC PO SCH (06:00)
[2017-09-27 08:46] VITALS: BP 113/60
[2017-09-27] MEDS: DIVALPROEX 500 MG TABLET.DR PO SCH ×2 (10:04→21:30)
[2017-09-27] MEDS: NICOTINE 7 MG/24 HR PATCH.TD24 TD SCH (10:04)
[2017-09-27] MEDS: DIVALPROEX 250 MG TABLET.DR PO SCH (11:52)
[2017-09-27 13:00] VITALS: BP 120/67
[2017-09-27] MEDS: ENOXAPARIN 40 MG/0.4 ML SQ SCH (16:35)
[2017-09-27 19:50] VITALS: BP 95/55
[2017-09-27] MEDS: MELATONIN 3 MG TABLET PO SCH (21:30)
[2017-09-28 03:36] VITALS: BP 100/73
[2017-09-28] MEDS: ASPIRIN 81 MG TABLET EC PO SCH (06:00)
[2017-09-28 07:36] VITALS: BP 95/62
[2017-09-28] MEDS: DIVALPROEX 500 MG TABLET.DR PO SCH ×2 (08:31→20:58)
[2017-09-28] MEDS: NICOTINE 7 MG/24 HR PATCH.TD24 TD SCH (08:32)
[2017-09-28] MEDS: DIVALPROEX 250 MG TABLET.DR PO SCH (11:28)
[2017-09-28 13:15] VITALS: BP 107/76
[2017-09-28] MEDS: ENOXAPARIN 40 MG/0.4 ML SQ SCH (17:00)
[2017-09-28 19:48] VITALS: BP 109/78
[2017-09-28] MEDS: MELATONIN 3 MG TABLET PO SCH (20:58)
[2017-09-29 02:00] VITALS: BP 118/67
[2017-09-29 05:34] LABS: CREATININE 0.83 mg/dL (0.7-1.3)
[2017-09-29] MEDS: ASPIRIN 81 MG TABLET EC PO SCH (06:00)
[2017-09-29 07:22] VITALS: BP 103/73
[2017-09-29] MEDS: DIVALPROEX 500 MG TABLET.DR PO SCH ×2 (08:14→22:11)
[2017-09-29] MEDS: NICOTINE 7 MG/24 HR PATCH.TD24 TD SCH (08:14)
[2017-09-29] MEDS: DIVALPROEX 250 MG TABLET.DR PO SCH (12:16)
[2017-09-29 13:39] VITALS: BP 97/59
[2017-09-29] MEDS: ENOXAPARIN 40 MG/0.4 ML SQ SCH (16:21)
[2017-09-29 20:00] VITALS: BP 105/70
[2017-09-29] MEDS: MELATONIN 3 MG TABLET PO SCH (22:11)
[2017-09-30 01:36] VITALS: BP 129/78
[2017-09-30] MEDS: ASPIRIN 81 MG TABLET EC PO SCH (05:36)
[2017-09-30 07:43] VITALS: BP 102/69
[2017-09-30] MEDS: DIVALPROEX 500 MG TABLET.DR PO SCH ×2 (09:58→22:33)
[2017-09-30] MEDS: NICOTINE 7 MG/24 HR PATCH.TD24 TD SCH (10:01)
[2017-09-30] MEDS: DIVALPROEX 250 MG TABLET.DR PO SCH (11:52)
[2017-09-30 12:21] VITALS: BP 109/74
[2017-09-30] MEDS: ACETAMINOPHEN 325 MG TABLET PO PRN (15:36)
[2017-09-30] MEDS: ENOXAPARIN 40 MG/0.4 ML SQ SCH (16:56)
[2017-09-30 20:00] VITALS: BP 121/84
[2017-09-30] MEDS: MELATONIN 3 MG TABLET PO SCH (22:33)
[2017-10-01] MEDS ORDERED: HYDROcodone/APAP 5/325 TABLET ONE (01:12)
[2017-10-01] MEDS ORDERED: ASPIRIN 81 MG TABLET CHEW ONE (01:29)
[2017-10-01] MEDS ORDERED: HYDROcodone/APAP 5/325 TABLET PO ONE (01:30)
[2017-10-01] MEDS ORDERED: ASPIRIN 81 MG TABLET CHEW PO ONE (01:30)
[2017-10-01 01:52] VITALS: BP 105/69
[2017-10-01 02:11] LABS: TROPONIN I < 0.015 ng/mL (0.000-0.045)
[2017-10-01] MEDS: ASPIRIN 81 MG TABLET EC PO SCH (06:27)
[2017-10-01 06:30] VITALS: BP 104/73
[2017-10-01 08:44] LABS: TROPONIN I < 0.015 ng/mL (0.000-0.045)
[2017-10-01] MEDS: NICOTINE 7 MG/24 HR PATCH.TD24 TD SCH (09:56)
[2017-10-01] MEDS: DIVALPROEX 500 MG TABLET.DR PO SCH ×2 (09:57→20:04)
[2017-10-01] MEDS: DIVALPROEX 250 MG TABLET.DR PO SCH (11:52)
[2017-10-01 12:26] VITALS: BP 108/67
[2017-10-01] MEDS: ENOXAPARIN 40 MG/0.4 ML SQ SCH (17:00)
[2017-10-01 19:19] VITALS: BP 117/74
[2017-10-01] MEDS: MELATONIN 3 MG TABLET PO SCH (20:04)
[2017-10-02 01:52] VITALS: BP 100/64
[2017-10-02] MEDS: ASPIRIN 81 MG TABLET EC PO SCH (06:21)
[2017-10-02 06:35] VITALS: BP 92/57
[2017-10-02] MEDS: NICOTINE 7 MG/24 HR PATCH.TD24 TD SCH (09:15)
[2017-10-02] MEDS: DIVALPROEX 500 MG TABLET.DR PO SCH ×2 (09:16→20:23)
[2017-10-02 12:05] VITALS: BP 113/78
[2017-10-02] MEDS: ENOXAPARIN 40 MG/0.4 ML SQ SCH (13:07)
[2017-10-02] MEDS: DIVALPROEX 250 MG TABLET.DR PO SCH (13:07)
[2017-10-02 19:10] VITALS: BP 95/51
[2017-10-02] MEDS: MELATONIN 3 MG TABLET PO SCH (20:23)
[2017-10-02] MEDS: ACETAMINOPHEN 325 MG TABLET PO PRN (20:29)
[2017-10-03 03:19] VITALS: BP 101/63
[2017-10-03] MEDS: ASPIRIN 81 MG TABLET EC PO SCH ×2 (06:00→08:35)
[2017-10-03 06:45] VITALS: BP 91/78
[2017-10-03] MEDS: NICOTINE 7 MG/24 HR PATCH.TD24 TD SCH (08:35)
[2017-10-03] MEDS: DIVALPROEX 500 MG TABLET.DR PO SCH ×2 (08:35→21:41)
[2017-10-03] MEDS: DIVALPROEX 250 MG TABLET.DR PO SCH (11:55)
[2017-10-03] MEDS: ENOXAPARIN 40 MG/0.4 ML SQ SCH (11:55)
[2017-10-03 12:36] VITALS: BP 105/73
[2017-10-03 19:05] VITALS: BP 121/79
[2017-10-03] MEDS: MELATONIN 3 MG TABLET PO SCH (21:41)
[2017-10-04 01:18] VITALS: BP 116/72
[2017-10-04 07:19] VITALS: BP 92/66
[2017-10-04] MEDS: DIVALPROEX 500 MG TABLET.DR PO SCH ×2 (09:14→22:13)
[2017-10-04] MEDS: NICOTINE 7 MG/24 HR PATCH.TD24 TD SCH (09:14)
[2017-10-04] MEDS: ASPIRIN 81 MG TABLET EC PO SCH (09:14)
[2017-10-04] MEDS: DIVALPROEX 250 MG TABLET.DR PO SCH (11:34)
[2017-10-04 13:18] VITALS: BP 100/68
[2017-10-04] MEDS: ENOXAPARIN 40 MG/0.4 ML SQ SCH (17:00)
[2017-10-04 18:40] VITALS: BP 105/64
[2017-10-04] MEDS: MELATONIN 3 MG TABLET PO SCH (22:13)
[2017-10-05 02:00] VITALS: BP 90/60
[2017-10-05 07:43] VITALS: BP 98/64
[2017-10-05] MEDS: ASPIRIN 81 MG TABLET EC PO SCH (09:54)
[2017-10-05] MEDS: NICOTINE 7 MG/24 HR PATCH.TD24 TD SCH (09:54)
[2017-10-05] MEDS: DIVALPROEX 500 MG TABLET.DR PO SCH ×2 (09:54→21:25)
[2017-10-05] MEDS: DIVALPROEX 250 MG TABLET.DR PO SCH (12:09)
[2017-10-05 12:51] VITALS: BP 122/82
[2017-10-05] MEDS: ENOXAPARIN 40 MG/0.4 ML SQ SCH (15:32)
[2017-10-05] MEDS: MELATONIN 3 MG TABLET PO SCH (21:25)
[2017-10-05 21:30] VITALS: BP 115/74
[2017-10-06 04:01] VITALS: BP 98/65
[2017-10-06 07:11] VITALS: BP 107/55
[2017-10-06] MEDS: ASPIRIN 81 MG TABLET EC PO SCH (10:29)
[2017-10-06] MEDS: DIVALPROEX 500 MG TABLET.DR PO SCH ×2 (10:29→22:00)
[2017-10-06] MEDS: NICOTINE 7 MG/24 HR PATCH.TD24 TD SCH (10:29)
[2017-10-06] MEDS: DIVALPROEX 250 MG TABLET.DR PO SCH (13:56)
[2017-10-06 13:58] VITALS: BP 120/83
[2017-10-06] MEDS: ENOXAPARIN 40 MG/0.4 ML SQ SCH (15:54)
[2017-10-06 19:45] VITALS: BP 108/79
[2017-10-06] MEDS: MELATONIN 3 MG TABLET PO SCH (22:00)
[2017-10-07 01:16] VITALS: BP 110/75
[2017-10-07 07:48] VITALS: BP 114/78
[2017-10-07] MEDS: DIVALPROEX 500 MG TABLET.DR PO SCH ×2 (08:55→22:00)
[2017-10-07] MEDS: NICOTINE 7 MG/24 HR PATCH.TD24 TD SCH (08:56)
[2017-10-07] MEDS: ASPIRIN 81 MG TABLET EC PO SCH (08:56)
[2017-10-07] MEDS: DIVALPROEX 250 MG TABLET.DR PO SCH (12:49)
[2017-10-07 13:49] VITALS: BP 118/73
[2017-10-07] MEDS: ENOXAPARIN 40 MG/0.4 ML SQ SCH (17:00)
[2017-10-07 18:59] VITALS: BP 114/81
[2017-10-07] MEDS: MELATONIN 3 MG TABLET PO SCH (22:00)
[2017-10-08 03:14] VITALS: BP 91/63
[2017-10-08 06:55] VITALS: BP 114/78
[2017-10-08] MEDS: ASPIRIN 81 MG TABLET EC PO SCH (08:21)
[2017-10-08] MEDS: DIVALPROEX 500 MG TABLET.DR PO SCH (08:21)
[2017-10-08] MEDS: NICOTINE 7 MG/24 HR PATCH.TD24 TD SCH (08:22)
[2017-10-08 09:06] LABS: CREATININE 0.87 mg/dL (0.7-1.3)
[2017-10-08] MEDS: DIVALPROEX 250 MG TABLET.DR PO SCH (11:48)
[2017-10-08 13:34] VITALS: BP 117/70
[2017-10-08] MEDS: ENOXAPARIN 40 MG/0.4 ML SQ SCH (17:00)
[2017-10-08 19:48] VITALS: BP 113/79
[2017-10-09 00:30] VITALS: BP 109/73
[2017-10-09] MEDS: MELATONIN 3 MG TABLET PO SCH ×2 (00:49→20:47)
[2017-10-09] MEDS: DIVALPROEX 500 MG TABLET.DR PO SCH ×3 (00:49→20:47)
[2017-10-09] MEDS: NICOTINE 7 MG/24 HR PATCH.TD24 TD SCH (10:29)
[2017-10-09] MEDS: ASPIRIN 81 MG TABLET EC PO SCH (10:35)
[2017-10-09 13:57] VITALS: BP 115/78
[2017-10-09] MEDS: DIVALPROEX 250 MG TABLET.DR PO SCH (14:14)
[2017-10-09] MEDS: ENOXAPARIN 40 MG/0.4 ML SQ SCH (17:00)
[2017-10-09 19:19] VITALS: BP 105/68
[2017-10-09] MEDS: ACETAMINOPHEN 325 MG TABLET PO PRN (23:17)
[2017-10-10 01:02] VITALS: BP 106/73
[2017-10-10 07:41] VITALS: BP 96/68
[2017-10-10] MEDS: NICOTINE 7 MG/24 HR PATCH.TD24 TD SCH ×2 (09:40→09:41)
[2017-10-10] MEDS: DIVALPROEX 500 MG TABLET.DR PO SCH ×2 (09:40→22:57)
[2017-10-10] MEDS: ACETAMINOPHEN 325 MG TABLET PO PRN ×2 (09:40→22:58)
[2017-10-10] MEDS: ASPIRIN 81 MG TABLET EC PO SCH (09:46)
[2017-10-10] MEDS: DIVALPROEX 250 MG TABLET.DR PO SCH (13:08)
[2017-10-10 13:46] VITALS: BP 137/84
[2017-10-10] MEDS: ENOXAPARIN 40 MG/0.4 ML SQ SCH (17:00)
[2017-10-10 19:24] VITALS: BP 100/69
[2017-10-10] MEDS: MELATONIN 3 MG TABLET PO SCH (22:58)
[2017-10-11 04:17] VITALS: BP 96/63
[2017-10-11 07:50] VITALS: BP 87/57
[2017-10-11] MEDS: DIVALPROEX 500 MG TABLET.DR PO SCH ×2 (09:14→21:27)
[2017-10-11] MEDS: ASPIRIN 81 MG TABLET EC PO SCH (09:14)
[2017-10-11] MEDS: NICOTINE 7 MG/24 HR PATCH.TD24 TD SCH (09:14)
[2017-10-11] MEDS: DIVALPROEX 250 MG TABLET.DR PO SCH (11:40)
[2017-10-11 12:11] VITALS: BP 92/61
[2017-10-11] MEDS: ENOXAPARIN 40 MG/0.4 ML SQ SCH (16:24)
[2017-10-11 18:50] VITALS: BP 102/66
[2017-10-11] MEDS: MELATONIN 3 MG TABLET PO SCH (21:26)
[2017-10-12 03:59] VITALS: BP 101/69
[2017-10-12] MEDS: ASPIRIN 81 MG TABLET EC PO SCH (09:09)
[2017-10-12] MEDS: DIVALPROEX 500 MG TABLET.DR PO SCH ×2 (09:09→21:31)
[2017-10-12] MEDS: ACETAMINOPHEN 325 MG TABLET PO PRN ×2 (09:09→18:12)
[2017-10-12 09:11] VITALS: BP 101/64
[2017-10-12] MEDS: DIVALPROEX 250 MG TABLET.DR PO SCH (12:40)
[2017-10-12] MEDS: GABAPENTIN 100 MG CAPSULE PO SCH ×3 (15:30→21:30)
[2017-10-12] MEDS: ENOXAPARIN 40 MG/0.4 ML SQ SCH (17:00)
[2017-10-12] MEDS: NICOTINE 7 MG/24 HR PATCH.TD24 TD SCH (18:13)
[2017-10-12 18:59] VITALS: BP 128/68
[2017-10-12] MEDS: MELATONIN 3 MG TABLET PO SCH (21:31)
[2017-10-13 01:46] VITALS: BP 100/62
[2017-10-13 05:31] LABS: CREATININE 0.79 mg/dL (0.7-1.3)
[2017-10-13 07:09] VITALS: BP 101/67
[2017-10-13] MEDS: GABAPENTIN 100 MG CAPSULE PO SCH ×3 (08:28→21:13)
[2017-10-13] MEDS: DIVALPROEX 500 MG TABLET.DR PO SCH ×2 (08:28→21:13)
[2017-10-13] MEDS: ASPIRIN 81 MG TABLET EC PO SCH (08:28)
[2017-10-13] MEDS: DIVALPROEX 250 MG TABLET.DR PO SCH (11:44)
[2017-10-13 13:44] VITALS: BP 123/78
[2017-10-13] MEDS: NICOTINE 7 MG/24 HR PATCH.TD24 TD SCH (16:38)
[2017-10-13] MEDS: ENOXAPARIN 40 MG/0.4 ML SQ SCH (16:39)
[2017-10-13 19:16] VITALS: BP 108/70
[2017-10-13] MEDS: MELATONIN 3 MG TABLET PO SCH (21:13)
[2017-10-14 00:55] VITALS: BP 102/67
[2017-10-14 07:25] VITALS: BP 87/58
[2017-10-14] MEDS: ASPIRIN 81 MG TABLET EC PO SCH (10:15)
[2017-10-14] MEDS: DIVALPROEX 500 MG TABLET.DR PO SCH ×2 (10:15→21:45)
[2017-10-14] MEDS: GABAPENTIN 100 MG CAPSULE PO SCH ×3 (10:15→21:45)
[2017-10-14] MEDS: DIVALPROEX 250 MG TABLET.DR PO SCH (12:22)
[2017-10-14 13:46] VITALS: BP 134/72
[2017-10-14] MEDS: NICOTINE 7 MG/24 HR PATCH.TD24 TD SCH (16:27)
[2017-10-14] MEDS: ENOXAPARIN 40 MG/0.4 ML SQ SCH (16:27)
[2017-10-14 19:09] VITALS: BP 113/72
[2017-10-14] MEDS: MELATONIN 3 MG TABLET PO SCH (21:45)
[2017-10-15 00:22] VITALS: BP 108/76
[2017-10-15 08:00] VITALS: BP 126/72
[2017-10-15] MEDS: ASPIRIN 81 MG TABLET EC PO SCH (09:21)
[2017-10-15] MEDS: GABAPENTIN 100 MG CAPSULE PO SCH ×3 (09:21→20:19)
[2017-10-15] MEDS: DIVALPROEX 500 MG TABLET.DR PO SCH ×2 (09:21→20:19)
[2017-10-15] MEDS: DIVALPROEX 250 MG TABLET.DR PO SCH (12:40)
[2017-10-15 13:35] VITALS: BP 105/68
[2017-10-15] MEDS: ENOXAPARIN 40 MG/0.4 ML SQ SCH (17:00)
[2017-10-15] MEDS: NICOTINE 7 MG/24 HR PATCH.TD24 TD SCH (17:01)
[2017-10-15 19:20] VITALS: BP 98/51
[2017-10-15] MEDS: MELATONIN 3 MG TABLET PO SCH (20:19)
[2017-10-16 02:09] VITALS: BP 117/73
[2017-10-16 07:25] VITALS: BP 114/80
[2017-10-16] MEDS: DIVALPROEX 500 MG TABLET.DR PO SCH ×2 (07:51→20:51)
[2017-10-16] MEDS: GABAPENTIN 100 MG CAPSULE PO SCH ×3 (07:51→20:51)
[2017-10-16] MEDS: ASPIRIN 81 MG TABLET EC PO SCH (07:53)
[2017-10-16] MEDS: DIVALPROEX 250 MG TABLET.DR PO SCH (13:12)
[2017-10-16 13:19] VITALS: BP 101/54
[2017-10-16] MEDS: NICOTINE 7 MG/24 HR PATCH.TD24 TD SCH (16:02)
[2017-10-16] MEDS: ENOXAPARIN 40 MG/0.4 ML SQ SCH (16:02)
[2017-10-16 19:00] VITALS: BP 101/69
[2017-10-16] MEDS: MELATONIN 3 MG TABLET PO SCH (20:51)
[2017-10-17 02:02] VITALS: BP 109/71
[2017-10-17 07:44] VITALS: BP 99/65
[2017-10-17] MEDS: ASPIRIN 81 MG TABLET EC PO SCH (08:36)
[2017-10-17] MEDS: DIVALPROEX 500 MG TABLET.DR PO SCH ×2 (08:36→23:23)
[2017-10-17] MEDS: GABAPENTIN 100 MG CAPSULE PO SCH ×3 (08:36→23:23)
[2017-10-17] MEDS: DIVALPROEX 250 MG TABLET.DR PO SCH (12:27)
[2017-10-17 13:18] VITALS: BP 118/89
[2017-10-17] MEDS: ENOXAPARIN 40 MG/0.4 ML SQ SCH (15:02)
[2017-10-17] MEDS: NICOTINE 7 MG/24 HR PATCH.TD24 TD SCH (17:06)
[2017-10-17 19:00] VITALS: BP 107/67
[2017-10-17] MEDS: MELATONIN 3 MG TABLET PO SCH (23:23)
[2017-10-18 01:18] VITALS: BP 100/69
[2017-10-18 07:18] VITALS: BP 104/65
[2017-10-18] MEDS: DIVALPROEX 500 MG TABLET.DR PO SCH ×2 (09:54→22:06)
[2017-10-18] MEDS: GABAPENTIN 100 MG CAPSULE PO SCH ×3 (09:54→22:08)
[2017-10-18] MEDS: ASPIRIN 81 MG TABLET EC PO SCH (09:54)
[2017-10-18] MEDS: DIVALPROEX 250 MG TABLET.DR PO SCH (11:39)
[2017-10-18 14:26] VITALS: BP 129/84
[2017-10-18] MEDS: ENOXAPARIN 40 MG/0.4 ML SQ SCH (17:00)
[2017-10-18] MEDS: NICOTINE 7 MG/24 HR PATCH.TD24 TD SCH (17:09)
[2017-10-18 21:39] VITALS: BP 112/61
[2017-10-18] MEDS: MELATONIN 3 MG TABLET PO SCH (22:06)
[2017-10-19 02:06] VITALS: BP 100/61
[2017-10-19 07:37] VITALS: BP 95/69
[2017-10-19] MEDS: DIVALPROEX 500 MG TABLET.DR PO SCH ×2 (09:30→21:34)
[2017-10-19] MEDS: ASPIRIN 81 MG TABLET EC PO SCH (09:30)
[2017-10-19] MEDS: GABAPENTIN 100 MG CAPSULE PO SCH ×3 (09:31→21:34)
[2017-10-19] MEDS: NICOTINE 7 MG/24 HR PATCH.TD24 TD SCH (09:39)
[2017-10-19] MEDS: DIVALPROEX 250 MG TABLET.DR PO SCH (12:20)
[2017-10-19 14:16] VITALS: BP 115/78
[2017-10-19] MEDS: ENOXAPARIN 40 MG/0.4 ML SQ SCH (17:00)
[2017-10-19 18:28] LABS: TROPONIN I < 0.015 ng/mL (0.000-0.045)
[2017-10-19 20:50] VITALS: BP 109/70
[2017-10-19] MEDS: MELATONIN 3 MG TABLET PO SCH (21:34)
[2017-10-20 03:58] VITALS: BP 91/57
[2017-10-20 07:58] VITALS: BP 85/44
[2017-10-20] MEDS: ASPIRIN 81 MG TABLET EC PO SCH (08:20)
[2017-10-20] MEDS: GABAPENTIN 100 MG CAPSULE PO SCH ×3 (08:20→21:50)
[2017-10-20] MEDS: DIVALPROEX 500 MG TABLET.DR PO SCH ×2 (08:20→21:50)
[2017-10-20] MEDS: DIVALPROEX 250 MG TABLET.DR PO SCH (11:46)
[2017-10-20] MEDS: NICOTINE 7 MG/24 HR PATCH.TD24 TD SCH (16:13)
[2017-10-20] MEDS: ENOXAPARIN 40 MG/0.4 ML SQ SCH (16:13)
[2017-10-20 21:39] VITALS: BP 111/73
[2017-10-20] MEDS: MELATONIN 3 MG TABLET PO SCH (21:50)
[2017-10-21 01:18] VITALS: BP 96/65
[2017-10-21 07:33] VITALS: BP 101/68
[2017-10-21] MEDS: ASPIRIN 81 MG TABLET EC PO SCH (08:56)
[2017-10-21] MEDS: DIVALPROEX 500 MG TABLET.DR PO SCH ×2 (08:56→21:42)
[2017-10-21] MEDS: GABAPENTIN 100 MG CAPSULE PO SCH ×3 (08:56→21:42)
[2017-10-21] MEDS: DIVALPROEX 250 MG TABLET.DR PO SCH (11:32)
[2017-10-21 12:42] VITALS: BP 129/87
[2017-10-21] MEDS: ENOXAPARIN 40 MG/0.4 ML SQ SCH (15:30)
[2017-10-21] MEDS: NICOTINE 7 MG/24 HR PATCH.TD24 TD SCH (15:30)
[2017-10-21 19:44] VITALS: BP 111/72
[2017-10-21] MEDS: MELATONIN 3 MG TABLET PO SCH (21:42)
[2017-10-22 01:51] VITALS: BP 141/73
[2017-10-22 10:06] VITALS: BP 107/73
[2017-10-22] MEDS: ASPIRIN 81 MG TABLET EC PO SCH (10:10)
[2017-10-22] MEDS: DIVALPROEX 500 MG TABLET.DR PO SCH ×2 (10:10→21:59)
[2017-10-22] MEDS: GABAPENTIN 100 MG CAPSULE PO SCH ×3 (10:10→21:59)
[2017-10-22 13:42] VITALS: BP 114/81
[2017-10-22] MEDS: DIVALPROEX 250 MG TABLET.DR PO SCH (14:05)
[2017-10-22] MEDS: ENOXAPARIN 40 MG/0.4 ML SQ SCH (16:09)
[2017-10-22] MEDS: NICOTINE 7 MG/24 HR PATCH.TD24 TD SCH (16:15)
[2017-10-22 20:26] VITALS: BP 111/76
[2017-10-22] MEDS: MELATONIN 3 MG TABLET PO SCH (21:59)
[2017-10-23 02:13] VITALS: BP 116/74
[2017-10-23 08:13] VITALS: BP 123/82
[2017-10-23] MEDS: DIVALPROEX 500 MG TABLET.DR PO SCH ×2 (09:30→21:25)
[2017-10-23] MEDS: GABAPENTIN 100 MG CAPSULE PO SCH ×3 (09:30→21:25)
[2017-10-23] MEDS: ASPIRIN 81 MG TABLET EC PO SCH (09:30)
[2017-10-23] MEDS: DIVALPROEX 250 MG TABLET.DR PO SCH (12:39)
[2017-10-23 13:07] VITALS: BP 101/74
[2017-10-23] MEDS: ENOXAPARIN 40 MG/0.4 ML SQ SCH (16:54)
[2017-10-23] MEDS: NICOTINE 7 MG/24 HR PATCH.TD24 TD SCH (16:54)
[2017-10-23 19:40] VITALS: BP 139/82
[2017-10-23] MEDS: MELATONIN 3 MG TABLET PO SCH (21:25)
[2017-10-24 03:15] VITALS: BP 102/71
[2017-10-24 07:37] VITALS: BP 97/65
[2017-10-24] MEDS: ASPIRIN 81 MG TABLET EC PO SCH ×2 (09:41→09:54)
[2017-10-24] MEDS: DIVALPROEX 500 MG TABLET.DR PO SCH ×2 (09:54→21:09)
[2017-10-24] MEDS: GABAPENTIN 100 MG CAPSULE PO SCH ×3 (09:54→21:09)
[2017-10-24] MEDS: DIVALPROEX 250 MG TABLET.DR PO SCH (12:36)
[2017-10-24 12:45] VITALS: BP 123/74
[2017-10-24] MEDS: ENOXAPARIN 40 MG/0.4 ML SQ SCH (16:18)
[2017-10-24] MEDS: NICOTINE 7 MG/24 HR PATCH.TD24 TD SCH (16:18)
[2017-10-24 18:15] VITALS: BP 133/75
[2017-10-24 19:07] LABS: TROPONIN I < 0.015 ng/mL (0.000-0.045)
[2017-10-24 20:09] VITALS: BP 112/77
[2017-10-24] MEDS: MELATONIN 3 MG TABLET PO SCH (21:09)
[2017-10-25 02:21] VITALS: BP 106/70
[2017-10-25 07:23] VITALS: BP 94/62
[2017-10-25] MEDS: GABAPENTIN 100 MG CAPSULE PO SCH ×3 (08:57→21:34)
[2017-10-25] MEDS: DIVALPROEX 500 MG TABLET.DR PO SCH ×2 (08:57→21:34)
[2017-10-25 12:33] VITALS: BP 115/66
[2017-10-25] MEDS: DIVALPROEX 250 MG TABLET.DR PO SCH (12:34)
[2017-10-25] MEDS: ENOXAPARIN 40 MG/0.4 ML SQ SCH (16:16)
[2017-10-25] MEDS: NICOTINE 7 MG/24 HR PATCH.TD24 TD SCH (16:19)
[2017-10-25 19:35] VITALS: BP 114/81
[2017-10-25] MEDS: MELATONIN 3 MG TABLET PO SCH (21:34)
[2017-10-26 05:51] VITALS: BP 94/62
[2017-10-26 07:50] VITALS: BP 106/73
[2017-10-26] MEDS: DIVALPROEX 500 MG TABLET.DR PO SCH ×2 (08:48→20:37)
[2017-10-26] MEDS: ASPIRIN 81 MG TABLET EC PO SCH (08:48)
[2017-10-26] MEDS: GABAPENTIN 100 MG CAPSULE PO SCH ×3 (08:48→20:37)
[2017-10-26] MEDS: DIVALPROEX 250 MG TABLET.DR PO SCH (11:37)
[2017-10-26 13:49] VITALS: BP 121/81
[2017-10-26] MEDS: ENOXAPARIN 40 MG/0.4 ML SQ SCH (16:00)
[2017-10-26] MEDS: NICOTINE 7 MG/24 HR PATCH.TD24 TD SCH (16:04)
[2017-10-26 20:35] VITALS: BP 106/68
[2017-10-26] MEDS: MELATONIN 3 MG TABLET PO SCH (20:37)
[2017-10-27 04:46] LABS: CREATININE 0.85 mg/dL (0.7-1.3)
[2017-10-27 05:49] VITALS: BP 110/72
[2017-10-27 06:58] VITALS: BP 124/80
[2017-10-27] MEDS: DIVALPROEX 500 MG TABLET.DR PO SCH ×2 (08:38→20:37)
[2017-10-27] MEDS: ASPIRIN 81 MG TABLET EC PO SCH (08:38)
[2017-10-27] MEDS: GABAPENTIN 100 MG CAPSULE PO SCH ×3 (08:38→20:37)
[2017-10-27] MEDS: DIVALPROEX 250 MG TABLET.DR PO SCH (11:50)
[2017-10-27 12:10] VITALS: BP 118/88
[2017-10-27] MEDS: ACETAMINOPHEN 325 MG TABLET PO PRN (15:21)
[2017-10-27] MEDS: ENOXAPARIN 40 MG/0.4 ML SQ SCH (15:27)
[2017-10-27] MEDS: NICOTINE 7 MG/24 HR PATCH.TD24 TD SCH (15:27)
[2017-10-27 19:12] VITALS: BP 111/74
[2017-10-27] MEDS: MELATONIN 3 MG TABLET PO SCH (20:37)
[2017-10-28 00:49] VITALS: BP 104/68
[2017-10-28 06:59] VITALS: BP 114/79
[2017-10-28] MEDS: ASPIRIN 81 MG TABLET EC PO SCH (09:00)
[2017-10-28] MEDS: DIVALPROEX 500 MG TABLET.DR PO SCH ×2 (11:04→21:21)
[2017-10-28] MEDS: GABAPENTIN 100 MG CAPSULE PO SCH ×3 (11:05→21:20)
[2017-10-28 13:04] VITALS: BP 114/77
[2017-10-28] MEDS: DIVALPROEX 250 MG TABLET.DR PO SCH (14:25)
[2017-10-28] MEDS: ENOXAPARIN 40 MG/0.4 ML SQ SCH (17:00)
[2017-10-28] MEDS: NICOTINE 7 MG/24 HR PATCH.TD24 TD SCH (17:26)
[2017-10-28 18:36] VITALS: BP 105/61
[2017-10-28] MEDS: MELATONIN 3 MG TABLET PO SCH (21:21)
[2017-10-29 02:21] VITALS: BP 109/71
[2017-10-29] MEDS ORDERED: ALBUTEROL SULFATE 2.5 MG/3 ML ONE (03:13)
[2017-10-29] MEDS ORDERED: ALBUTEROL SULFATE 2.5 MG/3 ML NPPB PRN (03:30)
[2017-10-29] MEDS: GABAPENTIN 100 MG CAPSULE PO SCH ×3 (08:33→20:28)
[2017-10-29] MEDS: ASPIRIN 81 MG TABLET EC PO SCH (08:33)
[2017-10-29] MEDS: DIVALPROEX 500 MG TABLET.DR PO SCH ×2 (08:34→20:28)
[2017-10-29 08:35] VITALS: BP 100/67
[2017-10-29] MEDS: DIVALPROEX 250 MG TABLET.DR PO SCH (12:43)
[2017-10-29 13:38] VITALS: BP 115/80
[2017-10-29] MEDS: NICOTINE 7 MG/24 HR PATCH.TD24 TD SCH (16:41)
[2017-10-29] MEDS: ENOXAPARIN 40 MG/0.4 ML SQ SCH (16:42)
[2017-10-29 19:15] VITALS: BP 99/62
[2017-10-29] MEDS: MELATONIN 3 MG TABLET PO SCH (20:28)
[2017-10-30 03:43] VITALS: BP 91/60
[2017-10-30] MEDS: ASPIRIN 81 MG TABLET EC PO SCH (08:46)
[2017-10-30] MEDS: GABAPENTIN 100 MG CAPSULE PO SCH ×3 (08:47→21:10)
[2017-10-30] MEDS: DIVALPROEX 500 MG TABLET.DR PO SCH ×2 (08:47→21:10)
[2017-10-30] MEDS: DIVALPROEX 250 MG TABLET.DR PO SCH (11:53)
[2017-10-30 14:24] VITALS: BP 101/62
[2017-10-30] MEDS: NICOTINE 7 MG/24 HR PATCH.TD24 TD SCH (16:43)
[2017-10-30] MEDS: ENOXAPARIN 40 MG/0.4 ML SQ SCH (16:43)
[2017-10-30 19:35] VITALS: BP 115/66
[2017-10-30] MEDS: MELATONIN 3 MG TABLET PO SCH (21:10)
[2017-10-30] MEDS: ACETAMINOPHEN 325 MG TABLET PO PRN (21:11)
[2017-10-31 02:14] VITALS: BP 121/65
[2017-10-31 07:35] VITALS: BP 106/70
[2017-10-31] MEDS: GABAPENTIN 100 MG CAPSULE PO SCH ×3 (09:39→21:03)
[2017-10-31] MEDS: ASPIRIN 81 MG TABLET EC PO SCH (09:39)
[2017-10-31] MEDS: DIVALPROEX 500 MG TABLET.DR PO SCH ×2 (09:41→21:01)
[2017-10-31] MEDS: DIVALPROEX 250 MG TABLET.DR PO SCH (12:36)
[2017-10-31 12:38] VITALS: BP 145/82
[2017-10-31] MEDS: ENOXAPARIN 40 MG/0.4 ML SQ SCH (15:42)
[2017-10-31] MEDS: NICOTINE 7 MG/24 HR PATCH.TD24 TD SCH (15:42)
[2017-10-31 19:00] VITALS: BP 106/64
[2017-10-31] MEDS: MELATONIN 3 MG TABLET PO SCH (21:01)
[2017-11-01 03:38] VITALS: BP 95/65
[2017-11-01 09:27] VITALS: BP 109/80
[2017-11-01] MEDS: DIVALPROEX 500 MG TABLET.DR PO SCH ×2 (09:55→20:59)
[2017-11-01] MEDS: GABAPENTIN 100 MG CAPSULE PO SCH ×3 (09:55→21:00)
[2017-11-01] MEDS: ASPIRIN 81 MG TABLET EC PO SCH (09:56)
[2017-11-01] MEDS: DIVALPROEX 250 MG TABLET.DR PO SCH (12:00)
[2017-11-01 15:02] VITALS: BP 99/66
[2017-11-01] MEDS: ENOXAPARIN 40 MG/0.4 ML SQ SCH (17:04)
[2017-11-01] MEDS: NICOTINE 7 MG/24 HR PATCH.TD24 TD SCH (17:04)
[2017-11-01 18:59] VITALS: BP 96/62
[2017-11-01] MEDS: MELATONIN 3 MG TABLET PO SCH (20:59)
[2017-11-02 00:54] VITALS: BP 125/61
[2017-11-02 07:26] VITALS: BP 102/66
[2017-11-02] MEDS: DIVALPROEX 500 MG TABLET.DR PO SCH ×2 (09:18→21:29)
[2017-11-02] MEDS: ASPIRIN 81 MG TABLET EC PO SCH (09:18)
[2017-11-02] MEDS: GABAPENTIN 100 MG CAPSULE PO SCH ×3 (09:18→21:29)
[2017-11-02] MEDS: DIVALPROEX 250 MG TABLET.DR PO SCH (11:18)
[2017-11-02 12:59] VITALS: BP 101/65
[2017-11-02] MEDS: NICOTINE 7 MG/24 HR PATCH.TD24 TD SCH (15:10)
[2017-11-02] MEDS: ENOXAPARIN 40 MG/0.4 ML SQ SCH (15:10)
[2017-11-02 20:18] VITALS: BP 105/64
[2017-11-02] MEDS: MELATONIN 3 MG TABLET PO SCH (21:29)
[2017-11-03 04:01] VITALS: BP 100/64
[2017-11-03 07:45] VITALS: BP 105/75
[2017-11-03] MEDS: ASPIRIN 81 MG TABLET EC PO SCH (09:00)
[2017-11-03] MEDS: GABAPENTIN 100 MG CAPSULE PO SCH ×2 (09:06→17:12)
[2017-11-03] MEDS: DIVALPROEX 500 MG TABLET.DR PO SCH (09:06)
[2017-11-03 12:27] LABS: CREATININE 0.76 mg/dL (0.7-1.3)
[2017-11-03] MEDS: DIVALPROEX 250 MG TABLET.DR PO SCH (12:32)
[2017-11-03 13:21] VITALS: BP 105/64
[2017-11-03] MEDS: ENOXAPARIN 40 MG/0.4 ML SQ SCH (17:00)
[2017-11-03] MEDS: NICOTINE 7 MG/24 HR PATCH.TD24 TD SCH (17:13)
[2017-11-03 20:16] VITALS: BP 118/75
[2017-11-04] MEDS: GABAPENTIN 100 MG CAPSULE PO SCH ×3 (02:35→16:40)
[2017-11-04] MEDS: DIVALPROEX 500 MG TABLET.DR PO SCH ×2 (02:36→10:04)
[2017-11-04] MEDS: MELATONIN 3 MG TABLET PO SCH (02:36)
[2017-11-04 03:59] VITALS: BP 121/78
[2017-11-04 07:00] VITALS: BP 103/64
[2017-11-04] MEDS: ASPIRIN 81 MG TABLET EC PO SCH (10:04)
[2017-11-04 12:51] VITALS: BP 93/55
[2017-11-04] MEDS: DIVALPROEX 250 MG TABLET.DR PO SCH (13:49)
[2017-11-04] MEDS: NICOTINE 7 MG/24 HR PATCH.TD24 TD SCH (16:40)
[2017-11-04] MEDS: ENOXAPARIN 40 MG/0.4 ML SQ SCH (16:40)
[2017-11-04 19:24] VITALS: BP 111/77
[2017-11-05] MEDS: GABAPENTIN 100 MG CAPSULE PO SCH ×4 (00:51→21:57)
[2017-11-05] MEDS: MELATONIN 3 MG TABLET PO SCH ×2 (00:51→21:57)
[2017-11-05] MEDS: DIVALPROEX 500 MG TABLET.DR PO SCH ×3 (00:52→21:57)
[2017-11-05 01:42] VITALS: BP 116/76
[2017-11-05 05:12] VITALS: BP 116/82
[2017-11-05 07:06] VITALS: BP 92/62
[2017-11-05] MEDS: ASPIRIN 81 MG TABLET EC PO SCH (09:24)
[2017-11-05] MEDS: DIVALPROEX 250 MG TABLET.DR PO SCH (12:50)
[2017-11-05 14:02] VITALS: BP 115/78
[2017-11-05] MEDS: ENOXAPARIN 40 MG/0.4 ML SQ SCH (16:05)
[2017-11-05] MEDS: NICOTINE 7 MG/24 HR PATCH.TD24 TD SCH (17:06)
[2017-11-05 19:20] VITALS: BP 102/65
[2017-11-06 01:34] VITALS: BP 99/62
[2017-11-06 08:10] VITALS: BP 116/76
[2017-11-06] MEDS: GABAPENTIN 100 MG CAPSULE PO SCH ×3 (08:58→22:03)
[2017-11-06] MEDS: DIVALPROEX 500 MG TABLET.DR PO SCH ×2 (08:58→22:03)
[2017-11-06] MEDS: ASPIRIN 81 MG TABLET EC PO SCH (08:58)
[2017-11-06] MEDS: DIVALPROEX 250 MG TABLET.DR PO SCH (12:10)
[2017-11-06 14:03] VITALS: BP 118/96
[2017-11-06] MEDS: NICOTINE 7 MG/24 HR PATCH.TD24 TD SCH (16:45)
[2017-11-06] MEDS: ENOXAPARIN 40 MG/0.4 ML SQ SCH (16:48)
[2017-11-06 19:35] VITALS: BP 119/84
[2017-11-06] MEDS: MELATONIN 3 MG TABLET PO SCH (22:03)
[2017-11-07 02:45] VITALS: BP 105/65
[2017-11-07 07:20] VITALS: BP 110/75
[2017-11-07] MEDS: ASPIRIN 81 MG TABLET EC PO SCH (09:28)
[2017-11-07] MEDS: DIVALPROEX 500 MG TABLET.DR PO SCH ×2 (09:28→20:39)
[2017-11-07] MEDS: GABAPENTIN 100 MG CAPSULE PO SCH ×3 (09:28→20:38)
[2017-11-07] MEDS: DIVALPROEX 250 MG TABLET.DR PO SCH (12:14)
[2017-11-07 13:23] VITALS: BP 132/79
[2017-11-07 13:59] VITALS: BP 97/58
[2017-11-07] MEDS: ENOXAPARIN 40 MG/0.4 ML SQ SCH (17:46)
[2017-11-07] MEDS: NICOTINE 7 MG/24 HR PATCH.TD24 TD SCH (17:48)
[2017-11-07 19:37] VITALS: BP 100/66
[2017-11-07] MEDS: MELATONIN 3 MG TABLET PO SCH (20:38)
[2017-11-08 01:39] VITALS: BP 102/62
[2017-11-08 05:15] LABS: CREATININE 0.77 mg/dL (0.7-1.3)
[2017-11-08 07:32] VITALS: BP 105/72
[2017-11-08] MEDS: DIVALPROEX 500 MG TABLET.DR PO SCH ×2 (08:39→21:11)
[2017-11-08] MEDS: GABAPENTIN 100 MG CAPSULE PO SCH ×3 (08:39→21:11)
[2017-11-08] MEDS: ASPIRIN 81 MG TABLET EC PO SCH (08:39)
[2017-11-08] MEDS: DIVALPROEX 250 MG TABLET.DR PO SCH (11:45)
[2017-11-08 13:02] VITALS: BP 128/88
[2017-11-08] MEDS: ENOXAPARIN 40 MG/0.4 ML SQ SCH (17:22)
[2017-11-08] MEDS: NICOTINE 7 MG/24 HR PATCH.TD24 TD SCH (17:22)
[2017-11-08] MEDS: MELATONIN 3 MG TABLET PO SCH (21:11)
[2017-11-08 21:45] VITALS: BP 113/69
[2017-11-09 03:35] VITALS: BP 104/73
[2017-11-09 08:00] VITALS: BP 99/69
[2017-11-09] MEDS: GABAPENTIN 100 MG CAPSULE PO SCH ×3 (09:14→20:33)
[2017-11-09] MEDS: DIVALPROEX 500 MG TABLET.DR PO SCH ×2 (09:14→20:31)
[2017-11-09] MEDS: ASPIRIN 81 MG TABLET EC PO SCH (09:14)
[2017-11-09] MEDS: DIVALPROEX 250 MG TABLET.DR PO SCH (12:21)
[2017-11-09 13:54] VITALS: BP 133/85
[2017-11-09] MEDS: ENOXAPARIN 40 MG/0.4 ML SQ SCH (17:00)
[2017-11-09] MEDS: NICOTINE 7 MG/24 HR PATCH.TD24 TD SCH (18:17)
[2017-11-09 20:02] VITALS: BP 137/69
[2017-11-09] MEDS: MELATONIN 3 MG TABLET PO SCH (20:30)
[2017-11-10 02:45] VITALS: BP 115/72
[2017-11-10 07:43] VITALS: BP 112/62
[2017-11-10] MEDS: DIVALPROEX 500 MG TABLET.DR PO SCH ×2 (09:48→19:55)
[2017-11-10] MEDS: ASPIRIN 81 MG TABLET EC PO SCH (09:48)
[2017-11-10] MEDS: GABAPENTIN 100 MG CAPSULE PO SCH ×3 (09:49→19:55)
[2017-11-10] MEDS: DIVALPROEX 250 MG TABLET.DR PO SCH (12:51)
[2017-11-10 14:05] VITALS: BP 126/88
[2017-11-10] MEDS: ENOXAPARIN 40 MG/0.4 ML SQ SCH (16:16)
[2017-11-10] MEDS: NICOTINE 7 MG/24 HR PATCH.TD24 TD SCH (18:11)
[2017-11-10] MEDS: MELATONIN 3 MG TABLET PO SCH (19:55)
[2017-11-10 21:11] VITALS: BP 116/72
[2017-11-11 02:20] VITALS: BP 122/81
[2017-11-11 07:26] VITALS: BP 111/70
[2017-11-11] MEDS: GABAPENTIN 100 MG CAPSULE PO SCH ×3 (08:57→21:12)
[2017-11-11] MEDS: DIVALPROEX 500 MG TABLET.DR PO SCH ×2 (08:58→21:12)
[2017-11-11] MEDS: ASPIRIN 81 MG TABLET EC PO SCH (08:59)
[2017-11-11] MEDS: DIVALPROEX 250 MG TABLET.DR PO SCH (12:42)
[2017-11-11 13:05] VITALS: BP 120/78
[2017-11-11] MEDS: ENOXAPARIN 40 MG/0.4 ML SQ SCH (16:43)
[2017-11-11] MEDS: NICOTINE 7 MG/24 HR PATCH.TD24 TD SCH (18:05)
[2017-11-11 20:11] VITALS: BP 112/76
[2017-11-11] MEDS: MELATONIN 3 MG TABLET PO SCH (21:12)
[2017-11-12 01:49] VITALS: BP 121/76
[2017-11-12 07:15] VITALS: BP 97/68
[2017-11-12] MEDS: DIVALPROEX 500 MG TABLET.DR PO SCH ×2 (09:32→20:30)
[2017-11-12] MEDS: GABAPENTIN 100 MG CAPSULE PO SCH ×3 (09:32→20:29)
[2017-11-12] MEDS: ASPIRIN 81 MG TABLET EC PO SCH (09:32)
[2017-11-12] MEDS: DIVALPROEX 250 MG TABLET.DR PO SCH (12:52)
[2017-11-12 13:31] VITALS: BP 133/84
[2017-11-12] MEDS: ENOXAPARIN 40 MG/0.4 ML SQ SCH (16:23)
[2017-11-12] MEDS: NICOTINE 7 MG/24 HR PATCH.TD24 TD SCH (16:23)
[2017-11-12 20:18] VITALS: BP 129/77
[2017-11-12 20:19] VITALS: BP 111/73
[2017-11-12] MEDS: MELATONIN 3 MG TABLET PO SCH (20:30)
[2017-11-13 01:19] VITALS: BP 98/65
[2017-11-13 07:02] VITALS: BP 107/75
[2017-11-13] MEDS: ASPIRIN 81 MG TABLET EC PO SCH (09:59)
[2017-11-13] MEDS: DIVALPROEX 500 MG TABLET.DR PO SCH ×2 (09:59→20:07)
[2017-11-13] MEDS: GABAPENTIN 100 MG CAPSULE PO SCH ×3 (09:59→20:07)
[2017-11-13] MEDS: DIVALPROEX 250 MG TABLET.DR PO SCH (12:20)
[2017-11-13 12:50] VITALS: BP 127/76
[2017-11-13] MEDS: NICOTINE 7 MG/24 HR PATCH.TD24 TD SCH (16:46)
[2017-11-13] MEDS: ENOXAPARIN 40 MG/0.4 ML SQ SCH (16:46)
[2017-11-13 19:00] VITALS: BP 122/69
[2017-11-13] MEDS: MELATONIN 3 MG TABLET PO SCH (20:07)
[2017-11-14 01:24] VITALS: BP 111/68
[2017-11-14] MEDS: GABAPENTIN 100 MG CAPSULE PO SCH ×3 (09:20→21:11)
[2017-11-14] MEDS: DIVALPROEX 500 MG TABLET.DR PO SCH ×2 (09:20→21:11)
[2017-11-14] MEDS: ASPIRIN 81 MG TABLET EC PO SCH (09:21)
[2017-11-14 10:39] VITALS: BP 104/66
[2017-11-14] MEDS: DIVALPROEX 250 MG TABLET.DR PO SCH (11:54)
[2017-11-14] MEDS: NICOTINE 7 MG/24 HR PATCH.TD24 TD SCH (15:35)
[2017-11-14 19:28] VITALS: BP 115/78
[2017-11-14] MEDS: ENOXAPARIN 40 MG/0.4 ML SQ SCH (21:12)
[2017-11-14] MEDS: MELATONIN 3 MG TABLET PO SCH (21:12)
[2017-11-15 01:33] VITALS: BP 97/54
[2017-11-15 05:33] LABS: CREATININE 0.77 mg/dL (0.7-1.3)
[2017-11-15] MEDS: DIVALPROEX 500 MG TABLET.DR PO SCH ×2 (09:08→20:54)
[2017-11-15] MEDS: GABAPENTIN 100 MG CAPSULE PO SCH ×3 (09:08→20:53)
[2017-11-15] MEDS: ASPIRIN 81 MG TABLET EC PO SCH (09:08)
[2017-11-15 10:05] VITALS: BP 97/62
[2017-11-15] MEDS: DIVALPROEX 250 MG TABLET.DR PO SCH (12:11)
[2017-11-15 13:19] VITALS: BP 111/69
[2017-11-15] MEDS: NICOTINE 7 MG/24 HR PATCH.TD24 TD SCH (15:28)
[2017-11-15 20:15] VITALS: BP 132/84
[2017-11-15] MEDS: ENOXAPARIN 40 MG/0.4 ML SQ SCH (20:54)
[2017-11-15] MEDS: MELATONIN 3 MG TABLET PO SCH (20:54)
[2017-11-16 00:18] VITALS: BP 106/73
[2017-11-16 08:09] VITALS: BP 108/69
[2017-11-16] MEDS: DIVALPROEX 500 MG TABLET.DR PO SCH ×2 (08:31→21:20)
[2017-11-16] MEDS: ASPIRIN 81 MG TABLET EC PO SCH (08:31)
[2017-11-16] MEDS: GABAPENTIN 100 MG CAPSULE PO SCH ×3 (08:31→21:20)
[2017-11-16] MEDS: DIVALPROEX 250 MG TABLET.DR PO SCH (11:15)
[2017-11-16 14:02] VITALS: BP 126/84
[2017-11-16] MEDS: NICOTINE 7 MG/24 HR PATCH.TD24 TD SCH (15:50)
[2017-11-16 20:41] VITALS: BP 130/77
[2017-11-16] MEDS: MELATONIN 3 MG TABLET PO SCH (21:20)
[2017-11-16] MEDS: ENOXAPARIN 40 MG/0.4 ML SQ SCH (21:20)
[2017-11-17 01:40] VITALS: BP 99/69
[2017-11-17] MEDS: ASPIRIN 81 MG TABLET EC PO SCH (08:29)
[2017-11-17] MEDS: DIVALPROEX 500 MG TABLET.DR PO SCH ×2 (08:29→20:48)
[2017-11-17] MEDS: GABAPENTIN 100 MG CAPSULE PO SCH ×3 (08:29→20:46)
[2017-11-17 08:33] VITALS: BP 117/73
[2017-11-17] MEDS: DIVALPROEX 250 MG TABLET.DR PO SCH (11:48)
[2017-11-17 14:54] VITALS: BP 92/55
[2017-11-17] MEDS: NICOTINE 7 MG/24 HR PATCH.TD24 TD SCH (16:31)
[2017-11-17 20:09] VITALS: BP 110/78
[2017-11-17] MEDS: MELATONIN 3 MG TABLET PO SCH (20:46)
[2017-11-17] MEDS: ENOXAPARIN 40 MG/0.4 ML SQ SCH (20:49)
[2017-11-18 00:29] VITALS: BP 110/70
[2017-11-18 07:11] VITALS: BP 103/54
[2017-11-18] MEDS: ASPIRIN 81 MG TABLET EC PO SCH (08:51)
[2017-11-18] MEDS: DIVALPROEX 500 MG TABLET.DR PO SCH ×2 (08:51→20:26)
[2017-11-18] MEDS: GABAPENTIN 100 MG CAPSULE PO SCH ×3 (08:51→20:26)
[2017-11-18 09:45] LABS: CREATININE 0.77 mg/dL (0.7-1.3)
[2017-11-18] MEDS: DIVALPROEX 250 MG TABLET.DR PO SCH (11:46)
[2017-11-18 14:08] VITALS: BP 114/81
[2017-11-18] MEDS: NICOTINE 7 MG/24 HR PATCH.TD24 TD SCH (17:00)
[2017-11-18 20:10] VITALS: BP 110/75
[2017-11-18] MEDS: MELATONIN 3 MG TABLET PO SCH (20:26)
[2017-11-18] MEDS: ENOXAPARIN 40 MG/0.4 ML SQ SCH (20:28)
[2017-11-19] MEDS: GABAPENTIN 100 MG CAPSULE PO SCH ×3 (08:53→20:22)
[2017-11-19] MEDS: DIVALPROEX 500 MG TABLET.DR PO SCH ×2 (08:54→20:22)
[2017-11-19] MEDS: ASPIRIN 81 MG TABLET EC PO SCH (08:54)
[2017-11-19 09:17] VITALS: BP 114/83
[2017-11-19] MEDS: DIVALPROEX 250 MG TABLET.DR PO SCH (11:50)
[2017-11-19] MEDS: ACETAMINOPHEN 325 MG TABLET PO PRN (11:53)
[2017-11-19 13:06] VITALS: BP 131/82
[2017-11-19] MEDS: NICOTINE 7 MG/24 HR PATCH.TD24 TD SCH (16:37)
[2017-11-19 20:05] VITALS: BP 137/75
[2017-11-19] MEDS: ENOXAPARIN 40 MG/0.4 ML SQ SCH ×2 (20:22→20:28)
[2017-11-19] MEDS: MELATONIN 3 MG TABLET PO SCH (20:22)
[2017-11-20 00:55] VITALS: BP 111/67
[2017-11-20 08:00] VITALS: BP 106/68
[2017-11-20] MEDS: DIVALPROEX 500 MG TABLET.DR PO SCH ×2 (10:07→20:26)
[2017-11-20] MEDS: ASPIRIN 81 MG TABLET EC PO SCH (10:07)
[2017-11-20] MEDS: GABAPENTIN 100 MG CAPSULE PO SCH ×3 (10:07→20:28)
[2017-11-20] MEDS: DIVALPROEX 250 MG TABLET.DR PO SCH (13:01)
[2017-11-20 13:12] VITALS: BP 132/88
[2017-11-20] MEDS: NICOTINE 7 MG/24 HR PATCH.TD24 TD SCH (17:00)
[2017-11-20] MEDS: ACETAMINOPHEN 325 MG TABLET PO PRN (17:44)
[2017-11-20 19:00] VITALS: BP 95/61
[2017-11-20] MEDS: ENOXAPARIN 40 MG/0.4 ML SQ SCH ×2 (20:28→20:36)
[2017-11-20] MEDS: MELATONIN 3 MG TABLET PO SCH (20:28)
[2017-11-21 01:37] VITALS: BP 98/63
[2017-11-21 08:00] LABS: CREATININE 0.79 mg/dL (0.7-1.3)
[2017-11-21 08:02] VITALS: BP 105/72
[2017-11-21] MEDS: DIVALPROEX 500 MG TABLET.DR PO SCH ×2 (09:02→20:33)
[2017-11-21] MEDS: GABAPENTIN 100 MG CAPSULE PO SCH ×3 (09:02→20:33)
[2017-11-21] MEDS: ASPIRIN 81 MG TABLET EC PO SCH (09:03)
[2017-11-21] MEDS ORDERED: MELA3TAB2 PO (12:05)
[2017-11-21] MEDS ORDERED: ASPI-621 PO (12:05)
[2017-11-21] MEDS ORDERED: DIVA-59 PO (12:05)
[2017-11-21] MEDS ORDERED: DIVA-61 PO ×2 (12:05)
[2017-11-21] MEDS ORDERED: GABA-826 PO (12:05)
[2017-11-21] MEDS: DIVALPROEX 250 MG TABLET.DR PO SCH (12:38)
[2017-11-21 13:54] VITALS: BP 115/81
[2017-11-21] MEDS: NICOTINE 7 MG/24 HR PATCH.TD24 TD SCH (15:34)
[2017-11-21] MEDS ORDERED: ALBUTEROL/IPRATROPIUM 2.5MG/0.5MG, 3 ML NPPB PRN (16:00)
[2017-11-21] MEDS ORDERED: ALBUTEROL/IPRATROPIUM 2.5MG/0.5MG, 3 ML ONE (16:03)
[2017-11-21 19:02] VITALS: BP 98/55
[2017-11-21] MEDS: MELATONIN 3 MG TABLET PO SCH (20:33)
[2017-11-21] MEDS: ENOXAPARIN 40 MG/0.4 ML SQ SCH (20:34)
[2017-11-22 01:49] VITALS: BP 111/75
[2017-11-22 08:00] VITALS: BP 103/67
[2017-11-22] MEDS: DIVALPROEX 500 MG TABLET.DR PO SCH ×2 (10:28→20:12)
[2017-11-22] MEDS: ASPIRIN 81 MG TABLET EC PO SCH (10:28)
[2017-11-22] MEDS: GABAPENTIN 100 MG CAPSULE PO SCH ×3 (10:28→20:11)
[2017-11-22] MEDS: DIVALPROEX 250 MG TABLET.DR PO SCH (13:47)
[2017-11-22 14:54] VITALS: BP 120/89
[2017-11-22] MEDS: NICOTINE 7 MG/24 HR PATCH.TD24 TD SCH ×2 (17:00→18:34)
[2017-11-22 20:09] VITALS: BP 146/78
[2017-11-22] MEDS: MELATONIN 3 MG TABLET PO SCH (20:11)
[2017-11-22] MEDS: ENOXAPARIN 40 MG/0.4 ML SQ SCH (20:14)
[2017-11-23 02:00] VITALS: BP 126/88
[2017-11-23] MEDS: NICOTINE 7 MG/24 HR PATCH.TD24 TD SCH (02:03)
== END 2017-11-23 04:00 | DRG 884 ==
LOC: ED 13:49 → EDIP 15:16 → 4NOR 16:57
PROVIDERS: ADMIT Hospitalist; ATTEND Family Medicine
DX: F84.0 Autistic disorder (principal); R53.2 Functional quadriplegia; G93.40 Encephalopathy, unspecified; J98.11 Atelectasis; R46.89 Other symptoms and signs involving appearance and behavior; F17.210 Nicotine dependence, cigarettes, uncomplicated; F25.9 Schizoaffective disorder, unspecified; F32.9 Major depressive disorder, single episode, unspecified; F41.1 Generalized anxiety disorder; F60.9 Personality disorder, unspecified; I48.0 Paroxysmal atrial fibrillation; I10 Essential (primary) hypertension; Z59.0 Homelessness; Z79.82 Long term (current) use of aspirin; Z85.841 Personal history of malignant neoplasm of brain; Z87.820 Personal history of traumatic brain injury; Z89.512 Acquired absence of left leg below knee; Z91.83 Wandering in diseases classified elsewhere; Z88.0 Allergy status to penicillin; Z79.899 Other long term (current) drug therapy
CPT/HCPCS: 36415; 99285; J7613; 71045; 80053; 80164; 80307; 80329; 81003; 82565; 82962; 84484; 85025; 86480; 87040; 93005; 94640; G0378; J1650; J1885; 92523-GN; G0480; G0515-GN; L3908